=== PATIENT | female | born 1945 | race Caucasian/White ===

== ENCOUNTER → 2017-09-03 | Outpatient (CLI) | payer MEDICARE ==
[~2017-09-03] MED LIST: ALPR.5T PO; B 12 COMPLEX; CALC-656 PO; CLD600T; E400C; ESTR1TAB24 PO; GBPN300C; IBP200T PO; IBP800T PO; MEDR2.5T6 PO; TRM50T PO; VITA1CAP59 PO; [UNRECOGNIZED DRUG - OTHER]; [UNRECOGNIZED DRUG - OTHER]
--- NOTE | 2017-09-03 19:24 | Diagnostic Imaging Report ---
EXAMINATION: Bilateral diagnostic mammogram with tomography evaluation. The current study was also evaluated with a Computer Aided Detection (CAD) system. COMPARISON: 05/29/16. INDICATION: Palpable lesion in the medial inferior aspect of the left breast. FINDINGS: The breasts are composed of heterogeneously dense parenchyma which may decrease mammographic sensitivity. Benign-appearing calcifications are seen. Marker at site of palpable area in the inferior aspect of the left breast, medially, demonstrates no definite underlying lesion. IMPRESSION: Stable mammographic findings. Ultrasound evaluation pending. ACR BI-RADS Category 0: Incomplete. (Needs additional imaging evaluation). Result letter will be mailed to the patient. Note: At least 10% of breast cancer is not imaged by mammography. Dictated on workstation # [id number]
--- NOTE | 2017-09-03 19:34 | Diagnostic Imaging Report ---
EXAMINATION: Left breast ultrasound. INDICATION: Left breast lump. FINDINGS: There area of lump around the 9 o'clock zone is examined with no underlying abnormality seen. IMPRESSION: Negative study. Clinical followup of the palpable area is recommended. ACR BI-RADS Category 1: Negative. Result letter will be mailed to the patient. Note: At least 10% of breast cancer is not imaged by mammography. Dictated on workstation # [id number]
== END ==
LOC: RAD 12:47
PROVIDERS: ATTEND Obstetrics & Gynecology
DX: N63.20 Unspecified lump in the left breast, unspecified quadrant (principal)
CPT/HCPCS: 76642; 77066

== ENCOUNTER → 2018-11-03 | Outpatient (CLI) | payer MEDICARE ==
--- NOTE | 2018-11-03 13:58 | Diagnostic Imaging Report ---
PROCEDURE: MR imaging of the brain without contrast. TECHNIQUE: Multiplanar, multisequence MR imaging of the brain was performed without contrast. INDICATION: Dizziness and headaches. COMPARISON: No prior studies are available for comparison. FINDINGS: Ventricles and sulci are consistent with patient's age. Mild periventricular white matter changes are noted, likely on the basis of chronic microvascular ischemia. No sulcal effacement or midline shift is identified. No diffusion restriction is seen to suggest acute ischemia. The normal expected flow-voids within the carotid siphons are seen. Corpus callosum is unremarkable. Sella and parasellar structures are unremarkable. IMPRESSION: White matter disease, likely on the basis of chronic microvascular ischemia. No acute intracranial process is detected. Dictated by: Dictated on workstation # [id number]
--- NOTE | 2018-11-03 14:04 | Diagnostic Imaging Report ---
PROCEDURE: MR imaging cervical spine without contrast. TECHNIQUE: Multiplanar, multisequence MR imaging of the cervical spine was performed without contrast. INDICATION: Headaches and dizziness. COMPARISON: No prior studies are available for comparison. FINDINGS: Curvature and alignment of the cervical spine is normal. Postsurgical changes of ACDF with anterior plate and screws transfixing the C3-4 level is seen. There also appears to be osseous fusion between C5 and C6 vertebral bodies and perhaps partial osseous fusion between C4 and C5 vertebral bodies. Prior old hardware has been removed. Vertebral body marrow signal is unremarkable. The signal intensity throughout the cervical spinal cord appears normal. Craniocervical junction is unremarkable. C2-3: No central canal or neural foraminal narrowing is seen. C3-4: No central canal or neural foraminal narrowing is seen. C4-5: Unremarkable. C5-6: There are endplate osteophytes and uncovertebral joint degenerative changes. This does result in moderate narrowing of the right neural foramen. Central canal and left neural foramen are patent. C6-7: Unremarkable. C7-T1: Unremarkable. IMPRESSION: Postsurgical changes of the cervical spine. There does appear to be moderate right neural foraminal narrowing at C5-6 level. No central canal stenosis is identified. Dictated by: Dictated on workstation # [id number]
== END ==
LOC: RAD 12:05
PROVIDERS: ATTEND Nurse Practitioner Family
DX: M48.02 Spinal stenosis, cervical region (principal); I10 Essential (primary) hypertension; R90.82 White matter disease, unspecified; Z98.1 Arthrodesis status
CPT/HCPCS: 70551; 72141

== ENCOUNTER → 2019-11-09 | Outpatient (CLI) | payer MEDICARE ==
--- NOTE | 2019-11-09 10:19 | Diagnostic Imaging Report ---
PROCEDURE: US carotid duplex, bilateral. INDICATION: Dizziness. TECHNIQUE: Multiple real-time images with color Doppler imaging were performed. Doppler velocity and waveform data were obtained. The cervical carotid and vertebral arteries were evaluated. FINDINGS: Color images demonstrate mild scattered plaque formation. This is most pronounced at the level of the carotid bifurcations. Right Carotid System: Right Common Carotid Artery: Patent. There is no abnormally elevated velocity to suggest a hemodynamically significant stenosis. Right Internal Carotid Artery: Patent. There is no abnormally elevated velocity to suggest a hemodynamically significant stenosis. Right External Carotid Artery: Patent. Left Carotid System: Left Common Carotid Artery: Patent. There is no abnormally elevated velocity to suggest a hemodynamically significant stenosis. Left Internal Carotid Artery: Patent. There is no abnormally elevated velocity to suggest a hemodynamically significant stenosis. Left External Carotid Artery: Patent. Vertebral arteries: Patent and with antegrade direction of flow. Parameters based on the consensus panel Thomas-Scale and Doppler ultrasound criteria published August 2003, Radiology, Volume 229. DOPPLER (peak systolic velocity M/S Right Left CCA .82 .79 ICA Proximal .47 .77 ICA Mid .15 .17 ICA Distal .75 .94 RATIO 0.92 1.19 ECA .70 .80 VERT .38 .40 IMPRESSION: 1. Carotid Doppler imaging demonstrates no findings to suggest a hemodynamically significant stenosis of the internal carotid arteries at this time. Dictated by: Dictated on workstation # [id number]
== END ==
LOC: RAD 08:53
PROVIDERS: ATTEND Nurse Practitioner Family
DX: R42 Dizziness and giddiness (principal)
CPT/HCPCS: 93880

== ENCOUNTER → 2020-04-20 | Outpatient (CLI) | payer MEDICARE ==
--- NOTE | 2020-04-20 13:33 | Diagnostic Imaging Report ---
PROCEDURE: MR imaging cervical spine without contrast. TECHNIQUE: Multiplanar, multisequence MR imaging of the cervical spine was performed without contrast. INDICATION: Increasing cervical pain. FINDINGS: The previous MRI cervical spine exam of 11/03/2018 noted postsurgical changes consistent with an anterior cervical fusion of C3 and C4. There also appeared to be an osseous fusion between C5 and C6 and a partial osseous fusion between C4 and C5. The prior study also suggested moderate right neuroforaminal narrowing at the C5-C6 level. There was no high-grade central stenosis identified, however. On this study, the postsurgical and degenerative changes involving the cervical spine seen on the prior exam are again evident and not significantly changed. There is still no high-grade central stenosis identified. The mild narrowing of the neural foramen on the right at C5-C6 reported on the prior study is again evident and stable. There is no abnormal signal arising from the cord or other vertebral bodies to indicate an acute abnormality. The prior exam did note a broad-based disc bulge centrally at T2-T3. That finding is again evident and no different. The disc indents the ventral aspect of the thecal sac and narrows the AP diameter to 8.5 mm. There is no significant neuroforaminal narrowing at this level. The long-standing mild compression fracture of T1 noted previously is also no different. There is no sign of a paraspinal mass. The expected carotid and vertebral flow voids are evident bilaterally. IMPRESSION: 1. The postsurgical and degenerative changes involving the cervical spine seen on the prior study are again evident and do not appear to have changed significantly. There is no new area of central stenosis identified. 2. There is no abnormal signal arising from the cord or other vertebral bodies to indicate an acute abnormality. 3. The degenerative disc disease at the T2-T3 level and the long-standing mild compression deformity of T1 noted previously appear stable. Dictated by: Dictated on workstation # [id number]
--- NOTE | 2020-04-20 14:26 | Diagnostic Imaging Report ---
PROCEDURE: MRI lumbar spine. TECHNIQUE: Multiplanar, multisequence MRI of the lumbar spine was performed without contrast. INDICATION: Two previous lumbar surgeries with increasing lumbar spine pain. COMPARISON: Radiographs from 02/08/2016. FINDINGS: There are postsurgical changes from prior posterior fusion of L5-S1. Numbering is capped consistent with the 2016 radiographs. There is grade 1 anterolisthesis at L5-S1 measuring 5 mm. There is disc height loss at L4-L5 and L3-L4 with decreased T2 signal. Vertebral body heights are preserved. No acute fracture is seen. The soft tissues about the lumbar spine demonstrate no acute abnormality. T12-L1: Mild disc bulge with facet arthropathy and ligamentous infolding. This causes mild spinal canal narrowing. No foraminal stenosis. L1-L2: Mild disc bulge with facet arthropathy and ligamentous infolding. No spinal canal or foraminal stenosis. L2-L3: Diffuse disc bulge with facet arthropathy and ligamentous infolding. No spinal canal stenosis. Mild bilateral foraminal narrowing. L3-L4: Diffuse disc bulge with laminectomy changes. Facet arthropathy with marked narrowing of the lateral recesses. No spinal canal stenosis. Severe bilateral foraminal stenosis. L4-L5: Diffuse disc bulge with facet arthropathy. Laminectomy changes. No spinal canal stenosis. Narrowing of the lateral recesses bilaterally. Severe bilateral foraminal stenosis. L5-S1: Anterolisthesis. Disc spacer. No spinal canal stenosis. Moderate bilateral foraminal stenosis. IMPRESSION: 1. Postsurgical changes and degenerative changes in the lumbar spine as described above. 2. Mild spinal canal narrowing at T12-L1. Severe bilateral foraminal stenosis at L3-L4 and L4-L5. Dictated by: Dictated on workstation # [id number]
--- NOTE | 2020-04-20 16:23 | Diagnostic Imaging Report ---
INDICATION: Routine screening. COMPARISON is made with prior mammograms from 09/03/2017 and 05/29/2016. 2-D and 3-D bilateral screening mammography was performed with CAD. Both breasts remain heterogeneously dense, limiting the sensitivity of mammography. Scattered benign calcifications are identified in both breasts. No dominant mass or malignant appearing microcalcifications are seen. Axillae are unremarkable. IMPRESSION: BI-RADS Category 2. No mammographic features suspicious for malignancy are identified. ACR BI-RADS Category 2: Benign findings. Result letter will be mailed to the patient. Note: At least 10% of breast cancer is not imaged by mammography. Dictated by: Dictated on workstation # [id number]
== END ==
LOC: RAD 10:58
PROVIDERS: ATTEND Family Medicine
DX: Z12.31 Encounter for screening mammogram for malignant neoplasm of breast (principal); M48.061 Spinal stenosis, lumbar region without neurogenic claudication; M48.02 Spinal stenosis, cervical region; M47.816 Spondylosis without myelopathy or radiculopathy, lumbar region; M43.17 Spondylolisthesis, lumbosacral region; M51.26 Other intervertebral disc displacement, lumbar region; M51.34 Other intervertebral disc degeneration, thoracic region; Z98.890 Other specified postprocedural states
CPT/HCPCS: 72141; 72148; 77063; 77067

== ENCOUNTER → 2020-04-27 | Outpatient (CLI) | payer MEDICARE ==
--- NOTE | 2020-04-27 11:22 | Diagnostic Imaging Report ---
INDICATION: Low back pain. Time of exam: 10:45 AM Multiple views of the lumbar spine were obtained. Curvature and alignment is normal. There are postoperative changes of posterior instrumented fusion with vertical stabilization rods and pedicle screws transfixing the L5-S1 level. There is also an anterior screw at the S1 level. Hardware appears to be intact. Flexion and extension views were performed. With standing neutral view there may be very slight anterolisthesis of L5 on S1. This is unchanged during extension and flexion. No significant motion is seen. Vertebral body heights are maintained. No acute compression fracture is identified. There is generalized spondylosis with variable disc space narrowing and marginal spurring. IMPRESSION: Postoperative changes, as described. No significant motion during flexion or extension maneuvers is identified. Dictated by: Dictated on workstation # [id number]
== END ==
LOC: RAD 10:29
PROVIDERS: ATTEND Nurse Practitioner Family
DX: M47.816 Spondylosis without myelopathy or radiculopathy, lumbar region (principal); M48.061 Spinal stenosis, lumbar region without neurogenic claudication; Z98.890 Other specified postprocedural states
CPT/HCPCS: 72110

== ENCOUNTER → 2020-10-10 | Outpatient (CLI) | payer MEDICARE ==
[~2020-10-10] VITALS: Ht 157.5 cm; Wt 86.4 kg
[~2020-10-10] MED LIST changes: +BAMLANIVIMAB 700 MG in NS 200 ML IV ONE; +EPINEPHrine INJECTION 1 MG/ML AMP IM PRN; +diphenhydrAMINE 50 MG/ML INJ (BENADRYL) IV PRN
[2020-10-10 08:29] VITALS: BP 144/73
[2020-10-10 10:05] VITALS: BP 117/53
[2020-10-10 11:10] VITALS: BP 130/65
== END ==
LOC: INFUSION 08:16
PROVIDERS: ATTEND Nurse Practitioner Family
DX: U07.1 COVID-19 (principal); E78.2 Mixed hyperlipidemia; E03.9 Hypothyroidism, unspecified

== ENCOUNTER 2020-12-09 10:06 | Emergency (ER) | payer MEDICARE ==
[~2020-12-09] VITALS: Ht 157 cm; Wt 86.1 kg
[~2020-12-09 10:06] MED LIST changes: -BAMLANIVIMAB 700 MG in NS 200 ML IV ONE; -EPINEPHrine INJECTION 1 MG/ML AMP IM PRN; -diphenhydrAMINE 50 MG/ML INJ (BENADRYL) IV PRN
[2020-12-09] MEDS ORDERED: MECL-149 PO (10:26)
[2020-12-09] MEDS ORDERED: DIAZ5TAB PO (10:26)
[2020-12-09] MEDS ORDERED: TRIA1CAP4 PO (10:26)
[2020-12-09] MEDS ORDERED: ONDA4TAB11 PO ×2 (10:26→13:29)
[2020-12-09] MEDS ORDERED: VALS40TA9 PO (10:26)
[2020-12-09] MEDS ORDERED: ONDANSETRON 4 MG/2 ML (SDV) Z0FRAN IVP ONE (10:30)
[2020-12-09] MEDS ORDERED: LACTATED RINGERS 1,000 ML IV ONE (10:30)
[2020-12-09 10:47] LABS: BASOPHILS # (AUTO) 0.1 10^3/uL (0.0-0.1); BASOPHILS % (AUTO) 1 % (0-10); EOSINOPHILS # (AUTO) 0.1 10^3/uL (0.0-0.3); EOSINOPHILS % (AUTO) 1 % (0-10); HEMATOCRIT 37 % (35-52); HEMOGLOBIN 12.2 g/dL (11.5-16.0); LYMPHOCYTES # (AUTO) 2.3 10^3/uL (1.0-4.0); LYMPHOCYTES % (AUTO) 26 % (12-44); MEAN CORPUSCULAR HEMOGLOBIN 31 pg (25-34); MEAN CORPUSCULAR HGB CONC 33 g/dL (32-36); MEAN CORPUSCULAR VOLUME 94 fL (80-99); MEAN PLATELET VOLUME 12.1 fL (9.0-12.2); MONOCYTES # (AUTO) 0.7 10^3/uL (0.0-1.0); MONOCYTES % (AUTO) 8 % (0-12); NEUTROPHILS # (AUTO) 5.4 10^3/uL (1.8-7.8); NEUTROPHILS % (AUTO) 63 % (42-75); PLATELET COUNT 201 10^3/uL (130-400); WHITE BLOOD COUNT 8.6 10^3/uL (4.3-11.0)
[2020-12-09 11:06] LABS: POTASSIUM 3.6 MMOL/L (3.6-5.0)
[2020-12-09 11:07] LABS: CALCIUM 9.3 MG/DL (8.5-10.1)
[2020-12-09 11:12] LABS: CREATININE SERUM 1.23 MG/DL (0.60-1.30)
--- NOTE | 2020-12-09 11:36 | ED General ---
General Chief Complaint: Dizziness/Syncope Stated Complaint: DIZZY / VOMITING Nursing Triage Note: PT PRESENTS TO ED VIA POV FROM HOME WITH COMPLAINTS OF CHRONIC VERTIGO THAT HAS GOTTEN WORSE WITH NAUSEA AND VOMTING. Nursing Sepsis Screen: No Definite Risk Source of Information: Patient, Family (son) Exam Limitations: No Limitations History of Present Illness Date Seen by Provider: Dec 09, 2020 Time Seen by Provider: 10:06 Initial Comments Patient presents to the ER by private conveyance with her son and chief complaint of 1 week of a worsened episode of vertigo. She follows with Dr. Funes and has been prescribed meclizine, Zofran 4mg both which were taken about 2 hours prior to arrival. She also has been prescribed Valium which she used about 2:00 this morning. She says she is never had an episode this severe with nausea. Couple days ago she went to the physical therapist who treats her for her vertigo and he did some procedures 1 of which made her very nauseated and caused her to vomit on the table. She does not want to do any more procedures. She called [facility] and was instructed to come to the ER. Patient has had poor fluid intake related to nausea lately and had to use a bedpan yesterday because she could not get out of bed due to her debilitating vertigo. Allergies and Home Medications Allergies Uncoded Allergies: DEPOMEDROL (Allergy, Unknown, 08/27/13) Home Medications Alprazolam 0.5 Mg Tablet, 0.5-1 TAB PO BID PRN for ANXIETY, (Reported) TAKES 1/2 TO 1 (0.5MG) TABLET TWICE DAILY NEEDED FOR ANXIETY Calcium Carbonate/Vitamin D3 1 Each Tablet, 1 TAB PO DAILY, (Reported) Estradiol 1 Mg Tablet, 1 MG PO DAILY, (Reported) Ibuprofen 200 Mg Tab, 400 MG PO DAILY, (Reported) TAKES 2 (200MG) TABLETS EVERY MORNING Ibuprofen 800 Mg Tab, 800 MG PO TID PRN for PAIN, (Reported) Medroxyprogesterone Acetate 2.5 Mg Tablet, 2.5 MG PO DAILY, (Reported) Tramadol Hcl 50 Mg Tab, 50 MG PO Q4H PRN for PAIN, (Reported) Valsartan 40 Mg Tablet, 40 MG PO DAILY, (Reported) Vitamin B Complex 1 Cap Capsule, 1 CAP PO DAILY, (Reported) Patient Home Medication List Home Medication List Reviewed: Yes Review of Systems Review of Systems Constitutional: No chills, No diaphoresis; dizziness; No fever EENTM: No ear discharge, No ear pain Respiratory: No cough, No short of breath Cardiovascular: No chest pain, No edema, No palpitations Gastrointestinal: No abdominal pain, No constipation; nausea, vomiting Genitourinary: No discharge, No dysuria All Other Systems Reviewed Negative Unless Noted: Yes Past Skjtetb-Yhtubi-Zupcrg Hx Patient Social History Alcohol Use: Denies Use Smoking Status: Never a Smoker 2nd Hand Smoke Exposure: No Recent Infectious Disease Expo: No Recent Hopitalizations: Yes Seasonal Allergies Seasonal Allergies: No Past Medical History Surgeries: Yes (3 NECK SURGERY, TONSILS AND APENDIX OUT, 2-LUMBAR SX) Appendectomy, Section, Gallbladder, Tonsillectomy Respiratory: No Cardiac: No High Cholesterol, Hypertension Neurological: Yes Vertigo Reproductive Disorders: No Female Reproductive Disorders: Denies Sexually Transmitted Disease: No HIV/AIDS: No Gastrointestinal: No Musculoskeletal: Yes Arthritis Endocrine: No Cancer: No Psychosocial: No Integumentary: No Blood Disorders: No Adverse Reaction/Blood Tranf: No Family Medical History Family history: Arthritis 09 SISTER, Onset:40's - 50 09 SISTER, Onset:40's - 50 Family history: Cardiovascular disease 03 FATHER, Onset:50's - 60 03 MOTHER, Onset:60 years & older 09 BROTHER, Onset:60 years & older 09 SISTER, Onset:60 years & older Heart disease 09 SISTER, Onset:60 years & older Heart Disease, Hypertension Physical Exam Vital Signs Vital Signs - First Documented 12/09/20 10:15 Temp 36.2 Pulse 92 Resp 18 B/P (MAP) 150/86 (107) Pulse Ox 98 Capillary Refill : Less Than 3 Seconds Height, Weight, BMI Height: '" Weight: 168lbs. oz. 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 Norm as Tested Skin: Normal Color, Warm/Dry Progress/Results/Core Measures Suspected Sepsis Recent Fever Within 48 Hours: No Infection Criteria Present: None New/Unexplained Altered Menta: No Sepsis Screen: No Definite Risk SIRS Temperature: Pulse: 92 Respiratory Rate: 18 Laboratory Tests 12/09/20 10:40: White Blood Count 8.6 Blood Pressure 150 /86 Mean: 107 Laboratory Tests 12/09/20 10:40: Creatinine 1.23, Platelet Count 201 Results/Orders Lab Results Laboratory Tests Test 12/09/20 10:40 Range/Units White Blood Count 8.6 4.3-11.0 10^3/uL Red Blood Count 3.95 3.80-5.11 10^6/uL Hemoglobin 12.2 11.5-16.0 g/dL Hematocrit 37 35-52 % Mean Corpuscular Volume 94 80-99 fL Mean Corpuscular Hemoglobin 31 25-34 pg Mean Corpuscular Hemoglobin Concent 33 32-36 g/dL Red Cell Distribution Width 13.5 10.0-14.5 % Platelet Count 201 130-400 10^3/uL Mean Platelet Volume 12.1 9.0-12.2 fL Immature Granulocyte % (Auto) 0 % Neutrophils (%) (Auto) 63 42-75 % Lymphocytes (%) (Auto) 26 12-44 % Monocytes (%) (Auto) 8 0-12 % Eosinophils (%) (Auto) 1 0-10 % Basophils (%) (Auto) 1 0-10 % Neutrophils # (Auto) 5.4 1.8-7.8 10^3/uL Lymphocytes # (Auto) 2.3 1.0-4.0 10^3/uL Monocytes # (Auto) 0.7 0.0-1.0 10^3/uL Eosinophils # (Auto) 0.1 0.0-0.3 10^3/uL Basophils # (Auto) 0.1 0.0-0.1 10^3/uL Immature Granulocyte # (Auto) 0.0 0.0-0.1 10^3/uL Sodium Level 140 135-145 MMOL/L Potassium Level 3.6 3.6-5.0 MMOL/L Chloride Level 103 98-107 MMOL/L Carbon Dioxide Level 25 21-32 MMOL/L Anion Gap 12 5-14 MMOL/L Blood Urea Nitrogen 18 7-18 MG/DL Creatinine 1.23 0.60-1.30 MG/DL Estimat Glomerular Filtration Rate 43 BUN/Creatinine Ratio 15 Glucose Level 118 H 70-105 MG/DL Calcium Level 9.3 8.5-10.1 MG/DL My Orders Orders - VICTORIANO BARRIENTOS Ua Culture If Indicated (12/09/20 10:09) Cbc With Automated Diff (12/09/20 10:20) Basic Metabolic Panel (12/09/20 10:20) Ondansetron Injection (Zofran Injectio (12/09/20 10:30) Lactated Ringers (Lr 1000 Ml Iv Solution (12/09/20 10:30) Medications Given in ED Current Medications Medications Dose Ordered Sig/Jas Route Start Time Stop Time Status Last Admin Dose Admin Lactated Ringer's 1,000 ml @ 0 mls/hr Q0M ONCE IV 12/09/20 10:30 12/09/20 10:31 DC 12/09/20 10:35 0 MLS/HR Ondansetron HCl 8 mg ONCE ONCE IVP 12/09/20 10:30 12/09/20 10:31 DC 12/09/20 10:35 8 MG Vital Signs/I&O 12/09/20 10:15 Temp 36.2 Pulse 92 Resp 18 B/P (MAP) 150/86 (107) Pulse Ox 98 Capillary Refill : Less Than 3 Seconds Blood Pressure Mean: 107 Progress Note #1: Time: 11:35 Progress Note We gave her 8 mg of Zofran and she is working on a liter of fluids IV for her mild dehydration. She is appearing much more relaxed and comfortable. We have discussed doing some procedures to try and help her with her vertigo and she wo uld like a little more time Progress Note #2: Time: 13:22 Progress Note The patient's nausea has resolved so we encouraged her to take 1 or 2 tablets of Zofran in the future. We did the modified Semont maneuver and were able to it with 2 iterations get her vertigo to stop. She is now able to turn her head left and right and look up and down without stimulating vertigo. Departure Impression Primary Impression: Vertigo Disposition: 01 HOME, SELF-CARE Condition: Improved Departure-Patient Inst. Decision time for Depature: 13:25 Referrals: KIRSTEN FUNES MD (PCP/Family) Primary Care Physician Patient Instructions: Vertigo (a Type of Dizziness) (DC) Add. Discharge Instructions: Zofran/ondansetron 1 tablet under the tongue and if not seeing some improvement in 20 minutes you can take a second tablet. Continue to take the other medications as prescribed by your primary care provider. Do the exercises as outlined and follow-up with physical therapy for maneuvers if your vertigo gets worse. Consider following up with ENT, Dr. Phillips for other options of management of your symptoms. All discharge instructions reviewed with patient and/or family. Voiced understanding. Scripts Ondansetron (Ondansetron Odt) 4 Mg Tab.rapdis 4-8 MG PO Q6H PRN for NAUSEA/VOMITING, #20 TAB 0 Refills Prov: VICTORIANO BARRIENTOS 12/09/20 VICTORIANO BARRIENTOS Dec 09, 2020 11:36
[2020-12-09 13:40] VITALS: BP 147/65
== END 2020-12-09 13:41 | disposition home or self-care (01) ==
LOC: EDUNIT# 10:06 → ER 10:09
DX: R42 Dizziness and giddiness (principal); I10 Essential (primary) hypertension; Z88.8 Allergy status to other drugs, medicaments and biological substances; Z82.49 Family history of ischemic heart disease and other diseases of the circulatory system; Z82.61 Family history of arthritis
CPT/HCPCS: 36415; 80048; 85025

== ENCOUNTER → 2021-08-20 | Outpatient (CLI) | payer MEDICARE ==
[~2021-08-20] MED LIST changes: +DIAZ5TAB PO; +MECL-149 PO; +ONDA4TAB11 PO; +TRIA1CAP4 PO; +VALS40TA9 PO
--- NOTE | 2021-08-20 12:27 | Diagnostic Imaging Report ---
INDICATION: LEFT LEG SWELLING AND PAIN FOR A FEW WEEKS TECHNIQUE: Multiple real-time grayscale images were obtained over the left lower extremity in various projections, bilaterally. Additional duplex Doppler and color Doppler images were also obtained. CORRELATION STUDY: None FINDINGS: Color and grayscale sonographic images demonstrate no intraluminal defect within the visualized portion of the common femoral, superficial femoral and/or popliteal veins to suggest thrombus formation. These vessels demonstrate normal response to compression and augmentation. No soft tissue fluid collection. IMPRESSION: 1. Negative for deep venous thrombosis of the left leg. Dictated by: Dictated on workstation # [id number]
== END ==
LOC: RAD 11:25
PROVIDERS: ATTEND Family Medicine
DX: M79.89 Other specified soft tissue disorders (principal); M79.605 Pain in left leg

== ENCOUNTER → 2021-09-18 | Outpatient (CLI) | payer MEDICARE ==
--- NOTE | 2021-09-18 12:53 | Diagnostic Imaging Report ---
INDICATION: Routine screening. COMPARISON: 04/20/2020 and 09/03/2017. TECHNIQUE: 2D and 3D bilateral screening mammography was performed with CAD. FINDINGS: Both breasts are heterogeneously dense, limiting the sensitivity of mammography. There are scattered benign calcifications in both breasts. No mass or malignant-appearing microcalcifications are seen. The axillae are unremarkable. IMPRESSION: No mammographic features suspicious for malignancy are identified. ACR BI-RADS Category 2: Benign findings. Result letter will be mailed to the patient. Note: At least 10% of breast cancer is not imaged by mammography. Dictated by: Dictated on workstation # [id number]
== END ==
LOC: RAD 08:10
PROVIDERS: ATTEND Nurse Practitioner Family
DX: Z12.31 Encounter for screening mammogram for malignant neoplasm of breast (principal)
CPT/HCPCS: 77063; 77067

== ENCOUNTER 2022-04-24 13:31 | Observation (INO) | payer MEDICARE ==
[~2022-04-24] VITALS: Ht 157.5 cm; Wt 94.4 kg
[~2022-04-24 13:31] MED LIST changes: -TRIA1CAP4 PO; +TRIA1CAP84 PO
[2022-04-24] MEDS ORDERED: FUROSEMIDE 40 MG/4 ML INJ (LASIX) IVP ONE (14:30)
[2022-04-24] MEDS ORDERED: PATIENT MAY USE OWN MEDS, ALL PO SCH (14:30)
[2022-04-24] MEDS ORDERED: ONDANSETRON 4 MG/2 ML (SDV) Z0FRAN IVP PRN ×2 (14:30→16:15)
--- NOTE | 2022-04-24 15:26 | Consultation-Cardiology ---
HPI-Cardiology Cardiology Consultation: Date of Consultation 04/24/22 Time Seen by a Provider: 15:30 Date of Admission 04-24-22 Attending Physician Millicent Funes MD Admitting Physician Admitting Physician: Millicent Funes MD Attending Physician: Millicent Funes MD Consulting Physician Donnie Cramre MD HPI: Chief Complaint: Dyspnea, dizziness, swelling Ms. Suarez is a 76 yr old female admitted from Dr. Funes's office to room 415. She reports she has chronic bilat LE swelling with the left leg being worse than the right since her back surgery in Jun 2021. She reports Dr. Silva at [facility] (her back surgeon) did a venous doppler in September 2021 (she thinks) which was negative for a DVT. She reports the swelling is not any worse from her baseline. She states it does not improve with elevation or diuretics. She states she has had a feeling of not being able to take in a deep breath for the last 1-2 weeks. She reports this morning she had a sudden onset of worsening SOB, dizzines and near syncope. She reports it was consistent for several hours. She reports the symptoms have improved at this time. No c/o CP, palpitations. No sameer syncope. She reports she felt nauseated at the time. No emesis or diarrhea. Review of Systems-Cardiology Review of Systems Constitutional: As described under HPI; No chills, No fever Eyes: No vision change Ears/Nose/Throat: No epistaxis, No recent hearing loss Respiratory: As described under HPI Cardiovascular: As described under HPI Gastrointestinal: As described under HPI Genitourinary: No dysuria, No hematuria Musculoskeletal: no symptoms reported Skin: No rash on exposed areas, No ulcerations on exposed areas Psychiatric/Neurological: No anxiety, No depression, No seizure, No focal weakness, No syncope Hematologic: No bleeding abnormalities YBM-Pxacav-Lfaear Hx Patient Social History Smoking Status: Never a Smoker 2nd Hand Smoke Exposure: No Have you traveled recently?: No Alcohol Use?: No Substance type: Caffeine Pt feels they are or have been: No Past Medical History PMH As described under Assessment. Family Medical History Family Medical History: She reports her father passed from an NC at age 58. She reports her mother had CAD and passed from an NC at age 79. She reports she has a brother with CAD. She reports a sister with a pericardial effusion. Family History: Family history: Arthritis 09 SISTER, Onset:40's - 50 09 SISTER, Onset:40's - 50 Family history: Cardiovascular disease 03 FATHER, Onset:50's - 60 03 MOTHER, Onset:60 years & older 09 BROTHER, Onset:60 years & older 09 SISTER, Onset:60 years & older Heart disease 09 SISTER, Onset:60 years & older Allergies and Home Medications Allergies Uncoded Allergies: DEPOMEDROL (Allergy, Unknown, 08/27/13) Patient Home Medication List Alprazolam (Xanax) 0.5 Mg Tablet, 0.5-1 TAB PO BID PRN for ANXIETY, (Reported) Entered as Reported by: REMI BUCKNER on 08/26/13 1532 Calcium Carbonate/Vitamin D3 (Calcium 500 + D Tablet) 1 Each Tablet, 1 TAB PO DAILY, (Reported) Entered as Reported by: REMI BUCKNER on 08/26/13 1526 Diazepam (Valium) 5 Mg Tablet, 5 MG PO, (Reported) Entered as Reported by: JOE TAYLOR on 12/09/20 1026 Estradiol (Estradiol) 1 Mg Tablet, 1 MG PO DAILY, (Reported) Entered as Reported by: REMI BUCKNER on 08/26/13 1532 Ibuprofen (Motrin) 200 Mg Tab, 400 MG PO DAILY, (Reported) Entered as Reported by: KRISHNA NOLAN on 10/26/08 2315 Ibuprofen (Motrin) 800 Mg Tab, 800 MG PO TID PRN for PAIN, (Reported) Entered as Reported by: JAM VICENTE on 08/27/13 1817 Meclizine HCl (Meclizine HCl) 25 Mg Tablet, 25 MG PO, (Reported) Entered as Reported by: JOE TAYLOR on 12/09/20 1026 Medroxyprogesterone Acetate (Medroxyprogesterone Acetate) 2.5 Mg Tablet, 2.5 MG PO DAILY, (Reported) Entered as Reported by: REMI BUCKNER on 08/26/13 1532 Ondansetron (Ondansetron Odt) 4 Mg Tab.rapdis, 4 MG PO, (Reported) Entered as Reported by: JOE TAYLOR on 12/09/20 1026 Ondansetron (Ondansetron Odt) 4 Mg Tab.rapdis, 4-8 MG PO Q6H PRN for NAUSEA/VOMITING Prescribed by: VICTORIANO BARRIENTOS on 12/09/20 1329 Tramadol Hcl (Ultram) 50 Mg Tab, 50 MG PO Q4H PRN for PAIN, (Reported) Entered as Reported by: JAM VICENTE on 08/27/13 1817 Triamterene/Hydrochlorothiazid (Triamterene-Hctz 37.5-25 mg Cp) 1 Each Capsule, 1 EACH PO, (Reported) Entered as Reported by: JOE TAYLOR on 12/09/20 1026 Valsartan (Valsartan) 40 Mg Tablet, 40 MG PO DAILY, (Reported) Entered as Reported by: JOE TAYLOR on 12/09/20 1026 Vitamin B Complex (B Complex) 1 Cap Capsule, 1 CAP PO DAILY, (Reported) Entered as Reported by: REMI BUCKNER on 08/26/13 1527 Physical Exam-Cardiology Physical Exam Vital Signs/I&O 04/24/22 04/24/22 15:00 15:00 Pulse 64 64 Capillary Refill : Constitutional: AAO x 3, well-developed, well-nourished HEENT: hearing is well preserved, oral hygience is good Neck: No carotid bruit; carotid pulses are 2 + bilaterally Respiratory: No accessory muscle use, No respiratory distress; chest expansion is symmetric, chest is bilaterally symmetric, lungs clear to auscultation Cardiovascular: regular rate-rhythm; No JVD; S1 and S2 Gastrointestinal: No tender; soft, round, audible bowel sounds Extremities: other (mild to mod LE swelling; L>R) Neurologic/Psychiatric: grossly intact (moves all extremities) Skin: No rash on exposed areas, No ulcerations on exposed areas Data Review Labs Laboratory Tests 04/24/22 15:21: White Blood Count 9.0, Red Blood Count 3.45L, Hemoglobin 11.1L, Hematocrit 35, Mean Corpuscular Volume 101H, Mean Corpuscular Hemoglobin 32, Mean Corpuscular Hemoglobin Concent 32, Red Cell Distribution Width 12.9, Platelet Count 189, Mean Platelet Volume 12.5H, Immature Granulocyte % (Auto) 0, Neutrophils (%) (Auto) 66, Lymphocytes (%) (Auto) 24, Monocytes (%) (Auto) 8, Eosinophils (%) (Auto) 1, Basophils (%) (Auto) 1, Neutrophils # (Auto) 5.9, Lymphocytes # (Auto) 2.2, Monocytes # (Auto) 0.7, Eosinophils # (Auto) 0.1, Basophils # (Auto) 0.1, Immature Granulocyte # (Auto) 0.0, Prothrombin Time 13.2, INR Comment 1.0, Activated Partial Thromboplast Time 27, Sodium Level 140, Potassium Level 3.7, Chloride Level 103, Carbon Dioxide Level 24, Anion Gap 13, Blood Urea Nitrogen 18, Creatinine 1.26, Estimat Glomerular Filtration Rate 45, BUN/Creatinine Ratio 14, Glucose Level 92, Calcium Level 9.6, Corrected Calcium 9.4, Total Bilirubin 0.9, Aspartate Amino Transf (AST/SGOT) 26, Alanine Aminotransferase (ALT/SGPT) 11, Alkaline Phosphatase 71, Myoglobin 126.4H, Troponin I < 0.028, Total Protein 7.3, Albumin 4.2 A/P-Cardiology Assessment/Admission Diagnosis Sudden worsening of dyspnea with assoc near syncope - undetermined etiology HTN HLD Chronic bilat LE swelling - L>R following back surgery in Jun [address] Silva at [facility] - reports negative venous duplex in Sep 2021 Reports CKD Peripheral neuropathy H/O multiple back surgeries - most recent being lumbar in Jun 2021 with wilton placement GERD H/O cholecystectomy Family h/o CAD - Mother, father, brother and sister (see family h/o) Discussion and Recomendations Sudden onset of worsening SOB with assoc near syncope/nausea - troponin is negative - undetermined etiology - Echocardiogram today - Based on symptoms, h/o and risk factors advise further coronary w/u - serial troponin and ECG - if no evidence of ACS advise MPI Advise CTA of the chest to r/o PE Continue home medications for HTN Advise venous duplex d/t swelling, with LLE worse than the RLE Start ASA daily Awaiting lab results Further recs will be based on her hospital course We would like to thank Dr. Funes for this consult EFRA JOHNSON Apr 24, 2022 15:26
[2022-04-24 15:31] LABS: BASOPHILS # (AUTO) 0.1 10^3/uL (0.0-0.1); BASOPHILS % (AUTO) 1 % (0-10); EOSINOPHILS # (AUTO) 0.1 10^3/uL (0.0-0.3); EOSINOPHILS % (AUTO) 1 % (0-10); HEMATOCRIT 35 % (35-52); HEMOGLOBIN 11.1 g/dL (11.5-16.0); LYMPHOCYTES # (AUTO) 2.2 10^3/uL (1.0-4.0); LYMPHOCYTES % (AUTO) 24 % (12-44); MEAN CORPUSCULAR HEMOGLOBIN 32 pg (25-34); MEAN CORPUSCULAR HGB CONC 32 g/dL (32-36); MEAN CORPUSCULAR VOLUME 101 fL (80-99); MEAN PLATELET VOLUME 12.5 fL (9.0-12.2); MONOCYTES # (AUTO) 0.7 10^3/uL (0.0-1.0); MONOCYTES % (AUTO) 8 % (0-12); NEUTROPHILS # (AUTO) 5.9 10^3/uL (1.8-7.8); NEUTROPHILS % (AUTO) 66 % (42-75); PLATELET COUNT 189 10^3/uL (130-400)
[2022-04-24 15:42] LABS: ALBUMIN 4.2 GM/DL (3.2-4.5); CHLORIDE 103 MMOL/L (98-107); POTASSIUM 3.7 MMOL/L (3.6-5.0); SODIUM 140 MMOL/L (135-145)
[2022-04-24 15:44] LABS: CALCIUM 9.6 MG/DL (8.5-10.1)
[2022-04-24 15:45] LABS: GLUCOSE 92 MG/DL (70-105); PROTHROMBIN TIME PATIENT 13.2 SEC (12.2-14.7); TOTAL PROTEIN 7.3 GM/DL (6.4-8.2)
[2022-04-24 15:46] LABS: CARBON DIOXIDE 24 MMOL/L (21-32)
[2022-04-24 15:47] LABS: BILIRUBIN,TOTAL 0.9 MG/DL (0.1-1.0)
[2022-04-24 15:48] LABS: ALKALINE PHOSPHATASE 71 U/L (40-136); CREATININE SERUM 1.26 MG/DL (0.60-1.30); GFR ESTIMATED 45
[2022-04-24 15:49] LABS: BUN/CREATININE RATIO 14
[2022-04-24 15:51] LABS: ALANINE AMINOTRANSFERASE 11 U/L (0-55)
[2022-04-24] MEDS ORDERED: ESCI-2 PO (16:24)
[2022-04-24] MEDS ORDERED: OMEP40CA6 PO (16:24)
[2022-04-24] MEDS ORDERED: PRAV10TA PO (16:24)
[2022-04-24] MEDS ORDERED: GABA-486 PO (16:24)
[2022-04-24] MEDS ORDERED: METO-333 PO (16:24)
[2022-04-24] MEDS ORDERED: FURO20TA4 PO (16:24)
[2022-04-24] MEDS ORDERED: TRIA1TAB3 PO (16:24)
[2022-04-24] MEDS ORDERED: IOHEXOL 350 MG/ML 100 ML (OMNIPAQUE 350) VIAL IV ONE (16:30)
[2022-04-24] MEDS ORDERED: NS 100 ML (IVPB) BAG IV ONE (16:30)
[2022-04-24] MEDS ORDERED: HOLD METFORMIN - RECEIVED CONTRAST 20 ML VIAL IV SCH (16:30)
--- NOTE | 2022-04-24 17:07 | Diagnostic Imaging Report ---
INDICATION: Shortness of breath. EXAMINATION: PA and lateral chest. FINDINGS: Heart size and pulmonary vascularity are normal. Lungs are clear. There are no effusions or pneumothoraces. IMPRESSION: No acute abnormalities in the chest. Dictated by: Dictated on workstation # [id number]
--- NOTE | 2022-04-24 17:07 | Diagnostic Imaging Report ---
PROCEDURE: US left lower extremity venous. TECHNIQUE: Multiple real-time grayscale images were obtained over the left lower extremity in various projections. Additional duplex Doppler and color Doppler images were also obtained. INDICATION: Left leg swelling. FINDINGS: The veins of the left leg have good color filling and compressibility. There is phasic flow and a normal response to augmentation. IMPRESSION: Negative venous Doppler left leg. Dictated by: Dictated on workstation # [id number]
--- NOTE | 2022-04-24 17:19 | Diagnostic Imaging Report ---
PROCEDURE: CT angiography of the chest with contrast. TECHNIQUE: Multiple contiguous axial images were obtained through the chest after uneventful bolus administration of intravenous contrast. 3D reconstructed CTA MIP acquisitions were also performed. Auto Exposure Controls were utilized during the CT exam to meet ALARA standards for radiation dose reduction. INDICATION: Edema. Chest pain. Concern for PE. COMPARISON: Chest radiograph performed earlier the same date. FINDINGS: This helical CT pulmonary angiogram is diagnostic to the subsegmental level branches of the pulmonary artery and demonstrates no pulmonary emboli. The heart is prominent. There is no pericardial effusion. There is no axillary, mediastinal, or hilar adenopathy. No focal consolidation or mass. Small amount of dependent opacities are seen in the lung bases. No central endobronchial obstructing lesion. No pleural effusion or pneumothorax is seen. Osseous structures appear normal. Limited views of the upper abdomen are unremarkable. IMPRESSION: 1. No acute pulmonary embolus. 2. Cardiomegaly. No evidence of acute pulmonary edema. Dictated by: Dictated on workstation # [id number]
--- NOTE | 2022-04-24 17:54 | History & Physical ---
History of Present Illness History of Present Illness Reason for visit/HPI Judi is a 76 y/o female who presented to my office today with complaint of "not feeling well, having trouble breathing, nausea and edema". The patient reports that she has had edema intermittently for the past few weeks, she thinks maybe for a month. She has noticed swelling of her face over the past few weeks. She admits to eating more salty foods over the past few weeks. Date of Admission Apr 24, 2022 at 13:32 Date Seen by a Provider: Apr 24, 2022 Time Seen by a Provider: 13:00 Attending Physician Kirsten Funes MD Admitting Physician Admitting Physician: Kirsten Funes MD Attending Physician: Kirsten Funes MD Consult Dr. Cramer Allergies and Home Medications Allergies Uncoded Allergies: DEPOMEDROL (Allergy, Unknown, 08/27/13) Patient Home Medication List Home Medication List Reviewed: Yes Escitalopram Oxalate (Escitalopram Oxalate) 10 Mg Tablet, 10 MG PO HS, (Reported) Entered as Reported by: KENZIE ROMAN on 04/24/221623 Last Action: Converted Furosemide (Furosemide) 20 Mg Tablet, 20 MG PO DAILY, (Reported) Entered as Reported by: KENZIE ROMAN on 04/24/221623 Last Action: Held Gabapentin (Gabapentin) 100 Mg Capsule, 200 MG PO TID, (Reported) Entered as Reported by: KENZIE ROMAN on 04/24/221623 Last Action: Continued Metoprolol Tartrate (Metoprolol Tartrate) 25 Mg Tablet, 12.5 MG PO BID, (Reported) Entered as Reported by: KENZIE ROMAN on 04/24/221623 Last Action: Continued Omeprazole (Omeprazole) 40 Mg Capsule.dr, 40 MG PO DAILY, (Reported) Entered as Reported by: KENZIE ROMAN on 04/24/221623 Last Action: Converted Pravastatin Sodium (Pravastatin Sodium) 10 Mg Tablet, 10 MG PO HS, (Reported) Entered as Reported by: KENZIE ROMAN on 04/24/221623 Last Action: Held Triamterene/Hydrochlorothiazid (Triamterene-Hctz 37.5-25 mg Tb) 37.5 Mg-25 Mg Tablet, 1 EA PO DAILY, (Reported) Entered as Reported by: KENZIE ROMAN on 7/13/22 1624 Last Action: Held Discontinued Medications Alprazolam (Xanax) 0.5 Mg Tablet, 0.5-1 TAB PO BID PRN for ANXIETY, (Reported) Discontinued Reason: No Longer Taking Entered as Reported by: REMI BUCKNER on 08/26/13 1532 Last Action: Discontinued Calcium Carbonate/Vitamin D3 (Calcium 500 + D Tablet) 1 Each Tablet, 1 TAB PO DAILY, (Reported) Discontinued Reason: No Longer Taking Entered as Reported by: REMI BUCKNER on 08/26/13 1526 Last Action: Discontinued Diazepam (Valium) 5 Mg Tablet, 5 MG PO, (Reported) Discontinued Reason: No Longer Taking Entered as Reported by: JOE TAYLOR on 12/09/20 1026 Last Action: Discontinued Estradiol (Estradiol) 1 Mg Tablet, 1 MG PO DAILY, (Reported) Discontinued Reason: No Longer Taking Entered as Reported by: REMI BUCKNER on 08/26/13 1532 Last Action: Discontinued Ibuprofen (Motrin) 200 Mg Tab, 400 MG PO DAILY, (Reported) Discontinued Reason: No Longer Taking Entered as Reported by: KRISHNA NOLAN on 10/26/08 2315 Last Action: Discontinued Ibuprofen (Motrin) 800 Mg Tab, 800 MG PO TID PRN for PAIN, (Reported) Discontinued Reason: No Longer Taking Entered as Reported by: JAM VICENTE on 08/27/13 1817 Last Action: Discontinued Meclizine HCl (Meclizine HCl) 25 Mg Tablet, 25 MG PO, (Reported) Discontinued Reason: No Longer Taking Entered as Reported by: JOE TAYLOR on 12/09/20 1026 Last Action: Discontinued Medroxyprogesterone Acetate (Medroxyprogesterone Acetate) 2.5 Mg Tablet, 2.5 MG PO DAILY, (Reported) Discontinued Reason: No Longer Taking Entered as Reported by: REMI BUCKNER on 08/26/13 1532 Last Action: Discontinued Ondansetron (Ondansetron Odt) 4 Mg Tab.rapdis, 4 MG PO, (Reported) Discontinued Reason: No Longer Taking Entered as Reported by: JOE TAYLOR on 12/09/20 1026 Last Action: Discontinued Ondansetron (Ondansetron Odt) 4 Mg Tab.rapdis, 4-8 MG PO Q6H PRN for NAUSEA/VOMITING Discontinued Reason: No Longer Taking Prescribed by: VICTORIANO BARRIENTOS on 12/09/20 1329 Last Action: Discontinued Tramadol Hcl (Ultram) 50 Mg Tab, 50 MG PO Q4H PRN for PAIN, (Reported) Discontinued Reason: No Longer Taking Entered as Reported by: JAM VICENTE on 08/27/13 1817 Last Action: Discontinued Triamterene/Hydrochlorothiazid (Triamterene-Hctz 37.5-25 mg Cp) 1 Each Capsule, 1 EACH PO, (Reported) Discontinued Reason: No Longer Taking Entered as Reported by: JOE TAYLOR on 12/09/20 1026 Last Action: Discontinued Valsartan (Valsartan) 40 Mg Tablet, 40 MG PO DAILY, (Reported) Discontinued Reason: No Longer Taking Entered as Reported by: JOE TAYLOR on 12/09/20 1026 Last Action: Discontinued Vitamin B Complex (B Complex) 1 Cap Capsule, 1 CAP PO DAILY, (Reported) Discontinued Reason: No Longer Taking Entered as Reported by: REMI BUCKNER on 08/26/13 1527 Last Action: Discontinued Past Oqbibhd-Mmcvfb-Cuzdpd Hx Patient Social History Marrital Status: Number of Children: 2 Number of living children: 2 Living Status: lives in her home in [facility]. 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 Tobacco Use?: No Smoking Status: Never a Smoker Use of E-Cig and/or Vaping dev: No Substance use?: Yes Substance type: Caffeine Substance frequency: Daily Alcohol Use?: No Pt feels they are or have been: No Immunizations Up To Date Tetanus Booster (TDap): Unknown Seasonal Allergies Seasonal Allergies: No Current Status status: No status: No Advance Directives: No Communicates: Verbally Primary Language: Bulgarian Preferred Spoken Language: Bulgarian Is interpretation needed?: No Sensory deficits: Vision impairment Implanted or Applied Medical D: Orthopedic hardware Past Medical History Surgeries: Appendectomy, Section, Gallbladder, Neurological (back surgery - lumbar spine), Tonsillectomy Currently Using CPAP: No Currently Using BIPAP: No High Cholesterol, Hypertension Vertigo Sexually Transmitted Disease: No HIV/AIDS: No Arthritis, Chronic Back Pain Hearing Impairment: Denies Anxiety, Depression Blood Disorders: No Adverse Reaction/Blood Tranf: No Family Medical History Reviewed and Corrections made Family history: Arthritis 09 SISTER, Onset:40's - 50 09 SISTER, Onset:40's - 50 Family history: Cardiovascular disease 03 FATHER, Onset:50's - 60 03 MOTHER, Onset:60 years & older 09 BROTHER, Onset:60 years & older 09 SISTER, Onset:60 years & older Heart disease 09 SISTER, Onset:60 years & older Heart Disease, Hypertension, Renal Disease (sister) Review of Systems Constitutional: No chills, No diaphoresis, No fever; malaise, weakness EENTM: No hoarseness, No throat pain Respiratory: No cough; dyspnea on exertion, short of breath Cardiovascular: chest pain ("stuffiness in her chest"), edema; No palpitations Gastrointestinal: abdominal pain; No constipation, No diarrhea; nausea; No vomiting Genitourinary: no symptoms reported Musculoskeletal: back pain (chronic intermittent pain), muscle weakness Skin: no symptoms reported Psychiatric/Neurological: Anxiety, Depressed; Denies Headache; Weakness, Other All Other Systems Reviewed Negative Unless Noted: Yes Physical Exam Vital Signs Vital Signs - First Documented Capillary Refill : Height, Weight, BMI Height: '" Weight: 168lbs. oz. [id number]; 38.05 BMI Method: General Appearance: WD/WN, Mild Distress (due to dyspnea) Eyes: Bilateral Eye Normal Inspection, Bilateral Eye PERRL, Bilateral Eye EOMI HEENT: PERRL/EOMI, Normal ENT Inspection, Pharynx Normal Neck: Full Range of Motion, Non Tender, Supple Respiratory: Chest Non Tender, Lungs Clear, Normal Breath Sounds, No Accessory Muscle Use Cardiovascular: Regular Rate, Rhythm, Other (edema bilateral lower legs - 4+ at ankles and mid lower legs 2-3+ at knees) Gastrointestinal: Normal Bowel Sounds, No Organomegaly, Soft, Tenderness (epigastric) Rectal: Deferred Extremity: Normal Capillary Refill, Normal Range of Motion, Non Tender, Pedal Edema Neurologic/Psychiatric: Alert, Oriented x3, No Motor/Sensory Deficits, Normal Mood/Affect Skin: Normal Color, Warm/Dry Lymphatic: No Adenopathy Assessment/Plan Assessment and Plan Chest pain Edema Dyspnea on exertion Nausea Abdominal pain Hypertension Chronic anxiety and depression Peripheral neuropathy Chronic back pain Hx of surgical intervention on lumbar spine Elevated myoglobin Chest pain with Edema and Dyspnea on exertion - consult placed to Dr. Cramer - EKG and ECHO ordered - Troponin negative - myoglobin mildly elevated - anticipate stress testing soon Nausea with Abdominal pain - add PPI - monitor symptoms Hypertension - resume beta tani - monitor blood pressure Chronic anxiety and depression - resume escitalopram Peripheral neuropathy with Chronic back pain from Hx of surgical intervention on lumbar spine - resume gabapentin dvt prophylaxis with scd's and lovenox gi prophylaxis with ppi Admission Diagnosis Chest pain Edema Dyspnea on exertion Nausea Abdominal pain Hypertension Chronic anxiety and depression Peripheral neuropathy Chronic back pain Hx of surgical intervention on lumbar spine Elevated myoglobin Admission Status: Observation KIRSTEN FUNES MD Apr 24, 2022 17:54
[2022-04-24 18:02] VITALS: BP 152/73
[2022-04-24] MEDS ORDERED: PANTOPRAZOLE 40 MG (PROTONIX) TAB PO NR (18:30)
[2022-04-24] MEDS ORDERED: ENOXAPARIN 40 MG/0.4 ML (LOVENOX) SYR SC SCH (18:30)
--- NOTE | 2022-04-24 19:19 | Consultation-Cardiology ---
HPI-Cardiology Cardiology Consultation: Date of Consultation 04/24/22 Time Seen by a Provider: 18:20 Date of Admission Attending Physician Millicent Funes MD Admitting Physician Admitting Physician: Millicent Funes MD Attending Physician: Millicent Funes MD Consulting Physician JOYCELYN ARGUETA MD, MA, FACP, FACC, FSCAI, CCDS HPI: Chief Complaint: Dyspnea, dizziness, swelling Ms. Suarez is a 76 yr old female admitted from Dr. Funes's office to room 415. She reports she has chronic bilat LE swelling with the left leg being worse than the right since her back surgery in Jun 2021. She reports Dr. Silva at [facility] (her back surgeon) did a venous doppler in September 2021 (she thinks) which was negative for a DVT. She reports the swelling is not any worse from her baseline. She states it does not improve with elevation or diuretics. She states she has had a feeling of not being able to take in a deep breath for the last 1-2 weeks. She reports this morning she had a sudden onset of worsening SOB, dizzines and near syncope. She reports it was consistent for several hours. She reports the symptoms have improved at this time. No c/o CP, palpitations. No sameer syncope. She reports she felt nauseated at the time. No emesis or diarrhea. Review of Systems-Cardiology Review of Systems Constitutional: As described under HPI; No chills, No fever Eyes: No vision change Ears/Nose/Throat: No epistaxis, No recent hearing loss Respiratory: As described under HPI Cardiovascular: As described under HPI Gastrointestinal: As described under HPI Genitourinary: No dysuria, No hematuria Musculoskeletal: no symptoms reported Skin: No rash on exposed areas, No ulcerations on exposed areas Psychiatric/Neurological: No anxiety, No depression, No seizure, No focal weakness, No syncope Hematologic: No bleeding abnormalities All Other Systems Reviewed Negative Unless Noted: Yes WUR-Luacin-Lhpxkn Hx Patient Social History Marrital Status: Number of Children: 2 Number of living children: 2 Living Status: lives in her home in [facility]. 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 Family Medical History Family Medical History: She reports her father passed from an [place] at age 58. She reports her mother had CAD and passed from an [place] at age 79. She reports she has a brother with CAD. She reports a sister with a pericardial effusion. Family History: Family history: Arthritis 09 SISTER, Onset:40's - 50 09 SISTER, Onset:40's - 50 Family history: Cardiovascular disease 03 FATHER, Onset:50's - 60 03 MOTHER, Onset:60 years & older 09 BROTHER, Onset:60 years & older 09 SISTER, Onset:60 years & older Heart disease 09 SISTER, Onset:60 years & older Allergies and Home Medications Allergies Uncoded Allergies: DEPOMEDROL (Allergy, Unknown, 08/27/13) Patient Home Medication List Home Medication List Reviewed: Yes Escitalopram Oxalate (Escitalopram Oxalate) 10 Mg Tablet, 10 MG PO HS, (Reported) Entered as Reported by: KENZIE ROMAN on 04/24/221623 Last Action: Converted Furosemide (Furosemide) 20 Mg Tablet, 20 MG PO DAILY, (Reported) Entered as Reported by: KENZIE ROMAN on 04/24/221623 Last Action: Held Gabapentin (Gabapentin) 100 Mg Capsule, 200 MG PO TID, (Reported) Entered as Reported by: KENZIE ROMAN on 04/24/221623 Last Action: Continued Metoprolol Tartrate (Metoprolol Tartrate) 25 Mg Tablet, 12.5 MG PO BID, (Reported) Entered as Reported by: KENZIE ROMAN on 04/24/221623 Last Action: Continued Omeprazole (Omeprazole) 40 Mg Capsule.dr, 40 MG PO DAILY, (Reported) Entered as Reported by: KENZIE ROMAN on 04/24/221623 Last Action: Converted Pravastatin Sodium (Pravastatin Sodium) 10 Mg Tablet, 10 MG PO HS, (Reported) Entered as Reported by: KENZIE ROMAN on 04/24/221623 Last Action: Held Triamterene/Hydrochlorothiazid (Triamterene-Hctz 37.5-25 mg Tb) 37.5 Mg-25 Mg Tablet, 1 EA PO DAILY, (Reported) Entered as Reported by: KENZIE ROMAN on 04/24/221623 Last Action: Held Discontinued Medications Alprazolam (Xanax) 0.5 Mg Tablet, 0.5-1 TAB PO BID PRN for ANXIETY, (Reported) Discontinued Reason: No Longer Taking Entered as Reported by: REMI BUCKNER on 08/26/13 153 Last Action: Discontinued Calcium Carbonate/Vitamin D3 (Calcium 500 + D Tablet) 1 Each Tablet, 1 TAB PO DAILY, (Reported) Discontinued Reason: No Longer Taking Entered as Reported by: REMI BUCKNER on 08/26/13 152 Last Action: Discontinued Diazepam (Valium) 5 Mg Tablet, 5 MG PO, (Reported) Discontinued Reason: No Longer Taking Entered as Reported by: JOE TAYLOR on 12/09/20 1026 Last Action: Discontinued Estradiol (Estradiol) 1 Mg Tablet, 1 MG PO DAILY, (Reported) Discontinued Reason: No Longer Taking Entered as Reported by: REMI BUCKNER on 08/26/13 153 Last Action: Discontinued Ibuprofen (Motrin) 200 Mg Tab, 400 MG PO DAILY, (Reported) Discontinued Reason: No Longer Taking Entered as Reported by: KRISHNA NOLAN on 10/26/08 2315 Last Action: Discontinued Ibuprofen (Motrin) 800 Mg Tab, 800 MG PO TID PRN for PAIN, (Reported) Discontinued Reason: No Longer Taking Entered as Reported by: JAM VICENTE on 08/27/131816 Last Action: Discontinued Meclizine HCl (Meclizine HCl) 25 Mg Tablet, 25 MG PO, (Reported) Discontinued Reason: No Longer Taking Entered as Reported by: JOE TAYLOR on 12/09/20 1026 Last Action: Discontinued Medroxyprogesterone Acetate (Medroxyprogesterone Acetate) 2.5 Mg Tablet, 2.5 MG PO DAILY, (Reported) Discontinued Reason: No Longer Taking Entered as Reported by: REMI BUCKNER on 08/26/13 1532 Last Action: Discontinued Ondansetron (Ondansetron Odt) 4 Mg Tab.rapdis, 4 MG PO, (Reported) Discontinued Reason: No Longer Taking Entered as Reported by: JOE TAYLOR on 12/09/20 1026 Last Action: Discontinued Ondansetron (Ondansetron Odt) 4 Mg Tab.rapdis, 4-8 MG PO Q6H PRN for NAUSEA/VOMITING Discontinued Reason: No Longer Taking Prescribed by: VICTORIANO BARRIENTOS on 12/09/20 1329 Last Action: Discontinued Tramadol Hcl (Ultram) 50 Mg Tab, 50 MG PO Q4H PRN for PAIN, (Reported) Discontinued Reason: No Longer Taking Entered as Reported by: JAM VICENTE on 08/27/13 1817 Last Action: Discontinued Triamterene/Hydrochlorothiazid (Triamterene-Hctz 37.5-25 mg Cp) 1 Each Capsule, 1 EACH PO, (Reported) Discontinued Reason: No Longer Taking Entered as Reported by: JOE TAYLOR on 12/09/20 1026 Last Action: Discontinued Valsartan (Valsartan) 40 Mg Tablet, 40 MG PO DAILY, (Reported) Discontinued Reason: No Longer Taking Entered as Reported by: JOE TAYLOR on 12/09/20 1026 Last Action: Discontinued Vitamin B Complex (B Complex) 1 Cap Capsule, 1 CAP PO DAILY, (Reported) Discontinued Reason: No Longer Taking Entered as Reported by: REMI BUCKNER on 08/26/13 1527 Last Action: Discontinued Physical Exam-Cardiology Physical Exam Vital Signs/I&O 04/24/22 04/24/22 04/24/22 15:00 15:00 18:02 Temp 36.4 Pulse 64 64 56 Resp 20 B/P (MAP) 152/73 (99) Pulse Ox 100 O2 Delivery Room Air Capillary Refill : Constitutional: AAO x 3, well-developed, well-nourished HEENT: hearing is well preserved, oral hygience is good Neck: No carotid bruit; carotid pulses are 2 + bilaterally Respiratory: No accessory muscle use, No respiratory distress; chest expansion is symmetric, chest is bilaterally symmetric, lungs clear to auscultation Cardiovascular: regular rate-rhythm; No JVD; S1 and S2 Gastrointestinal: No tender; soft, round, audible bowel sounds Extremities: other (mod LE swelling; L>R) Neurologic/Psychiatric: grossly intact (moves all extremities) Skin: No rash on exposed areas, No ulcerations on exposed areas Data Review Labs Laboratory Tests 04/24/22 15:21: White Blood Count 9.0, Red Blood Count 3.45L, Hemoglobin 11.1L, Hematocrit 35, Mean Corpuscular Volume 101H, Mean Corpuscular Hemoglobin 32, Mean Corpuscular Hemoglobin Concent 32, Red Cell Distribution Width 12.9, Platelet Count 189, Mean Platelet Volume 12.5H, Immature Granulocyte % (Auto) 0, Neutrophils (%) (Au to) 66, Lymphocytes (%) (Auto) 24, Monocytes (%) (Auto) 8, Eosinophils (%) (Auto) 1, Basophils (%) (Auto) 1, Neutrophils # (Auto) 5.9, Lymphocytes # (Auto) 2.2, Monocytes # (Auto) 0.7, Eosinophils # (Auto) 0.1, Basophils # (Auto) 0.1, Immature Granulocyte # (Auto) 0.0, Prothrombin Time 13.2, INR Comment 1.0, Activated Partial Thromboplast Time 27, Sodium Level 140, Potassium Level 3.7, Chloride Level 103, Carbon Dioxide Level 24, Anion Gap 13, Blood Urea Nitrogen 18, Creatinine 1.26, Estimat Glomerular Filtration Rate 45, BUN/Creatinine Ratio 14, Glucose Level 92, Calcium Level 9.6, Corrected Calcium 9.4, Total Bilirubin 0.9, Aspartate Amino Transf (AST/SGOT) 26, Alanine Aminotransferase (ALT/SGPT) 11, Alkaline Phosphatase 71, Myoglobin 126.4H, Troponin I < 0.028, Total Protein 7.3, Albumin 4.2 A/P-Cardiology Assessment/Admission Diagnosis Sudden worsening of dyspnea with assoc near-syncope - undetermined etiology - Pulm CT angio on 04/24/22: 1. No acute pulmonary embolus. 2. Cardiomegaly. No evidence of acute pulmonary edema. - Echo on 04/24/22: The cavity size is normal. Wall thickness is normal. Systolic function is normal. The estimated ejection fraction is 55-60%. There were no regional wall motion abnormalities identified. Pulmonary arteries: Systolic pressure is in the range of 20 mm Hg to 25 mm Hg HTN HLD Chronic bilat LE swelling - L>R following back surgery in Jun [address] Silva at [facility] - reports negative venous duplex in Sep 2021 - Negative venous Doppler left leg on 04/24/22 CKD-3 Peripheral neuropathy H/O multiple back surgeries - most recent being lumbar in Jun 2021 with [place] placement GERD H/O cholecystectomy Family h/o CAD - Mother, father, brother and sister (see family h/o) Discussion and Recomendations Sudden onset of worsening SOB with assoc near syncope/nausea - no evidence of ac CHF or PE or pneumonia - Based on symptoms, h/o and risk factors advise further coronary w/u - serial troponin and ECG - if no evidence of ACS advise MPI Continue home medications for HTN Start ASA daily Further recs will be based on her hospital course. We would like to thank Dr. Funes for this consult JOYCELYN ARGUETA MD FACP FAC CCDS Apr 24, 2022 19:19
[2022-04-24] MEDS: meTOprolol TARTRATE 25 MG (LOPRESSOR) TABLET PO SCH (20:09)
[2022-04-24] MEDS: GABAPENTIN 100 MG (NEURONTIN) CAP PO SCH (20:17)
[2022-04-24 20:48] VITALS: BP 147/65
[2022-04-24] MEDS ORDERED: NON-FORMULARY MEDICATION 1 EA EA (Escitalopram Oxalate 10 MG) PO SCH (21:00)
[2022-04-24 22:07] LABS: BILIRUBIN,URINE NEGATIVE (NEGATIVE); CLARITY,URINE CLEAR; COLOR,URINE YELLOW; GLUCOSE, URINE (UA) NEGATIVE (NEGATIVE); KETONES,URINE NEGATIVE (NEGATIVE); LEUKOCYTE ESTERASE ,URINE NEGATIVE (NEGATIVE); NITRITE,URINE NEGATIVE (NEGATIVE); PROTEIN,URINE NEGATIVE (NEGATIVE)
[2022-04-24 22:17] LABS: BACTERIA,URINE NEGATIVE /HPF
[2022-04-24 23:27] VITALS: BP 122/58
[2022-04-25 03:32] VITALS: BP 118/66
[2022-04-25 06:01] LABS: HEMATOCRIT 32 % (35-52); HEMOGLOBIN 10.3 g/dL (11.5-16.0); MEAN CORPUSCULAR HEMOGLOBIN 32 pg (25-34); MEAN CORPUSCULAR HGB CONC 32 g/dL (32-36); MEAN CORPUSCULAR VOLUME 99 fL (80-99); MEAN PLATELET VOLUME 12.8 fL (9.0-12.2); PLATELET COUNT 160 10^3/uL (130-400); WHITE BLOOD COUNT 7.2 10^3/uL (4.3-11.0)
[2022-04-25 06:09] LABS: ALBUMIN 3.7 GM/DL (3.2-4.5); POTASSIUM 3.6 MMOL/L (3.6-5.0)
[2022-04-25 06:10] LABS: CALCIUM 9.3 MG/DL (8.5-10.1)
[2022-04-25 06:12] LABS: TOTAL PROTEIN 6.4 GM/DL (6.4-8.2)
[2022-04-25 06:13] LABS: BILIRUBIN,TOTAL 0.9 MG/DL (0.1-1.0)
[2022-04-25 06:15] LABS: CREATININE SERUM 1.32 MG/DL (0.60-1.30)
--- NOTE | 2022-04-25 07:31 | Discharge Summary ---
Diagnosis/Chief Complaint Date of Admission Apr 24, 2022 at 13:32 Date of Discharge Discharge Date: Apr 25, 2022 Admission Diagnosis Admission Diagnosis Chest pain Edema Dyspnea on exertion Nausea Abdominal pain Hypertension Chronic anxiety and depression Peripheral neuropathy Chronic back pain Hx of surgical intervention on lumbar spine Elevated myoglobin Discharge Diagnosis Chest pain (improved) Edema (improved) Dyspnea on exertion (improved) Nausea (improved) Abdominal pain (improved) Hypertension Chronic anxiety and depression Peripheral neuropathy Chronic back pain Hx of surgical intervention on lumbar spine Elevated myoglobin Reason Hospital Visit Judi is a 76 y/o female who presented to my office today with complaint of "not feeling well, having trouble breathing, nausea and edema". The patient reports that she has had edema intermittently for the past few weeks, she thinks maybe for a month. She has noticed swelling of her face over the past few weeks. She admits to eating more salty foods over the past few weeks. Discharge Summary Hospital Course Hospital Course Chest pain with Edema and Dyspnea on exertion - consult placed to Dr. Cramer - EKG, Pulm CTA and ECHO done -pulm CTA on 04/24/22 showed, according to radiology, no acute pulmonary embolus, cardiomegaly with no evidence of acute pulmonary edema. -echo on 04/24/22: The cavity size normal. Wall thickness normal. Systolic function normal. The estimated ejection fraction is 55-60%. There were no regional wall motion abnormalities identified. Pulmonary arteries: Systolic pressure is in the range of 20 mmHg to 25 mmHg - troponin negative - myoglobin mildly elevated - lipid panel negative - LE edema improved from yesterday after receiving Lasix 40mg IV. Left leg still larger than right. Pt reports that this is chronic since the back surgery she had in Jun 2021 - facial edema greatly improved - I&Os recorded, pt is down about 2L since yesterday - anticipate stress testing soon Nausea with Abdominal pain - PPI added yesterday - nausea has resolved - monitor symptoms Hypertension - resumed beta tani - continue home medications on discharge Chronic anxiety and depression - resumed escitalopram, continue at home Peripheral neuropathy with Chronic back pain from Hx of surgical intervention on lumbar spine - continue gabapentin at home dvt prophylaxis done with scd's and lovenox gi prophylaxis done with ppi Labs Laboratory Tests 04/24/22 15:21: Red Blood Count 3.45L, Hemoglobin 11.1L, Mean Corpuscular Volume 101H, Mean Platelet Volume 12.5H, Myoglobin 126.4H 04/24/22 20:30: 04/25/22 05:45: Red Blood Count 3.24L, Hemoglobin 10.3L, Mean Platelet Volume 12.8H, Hematocrit 32L, Blood Urea Nitrogen 22H, Creatinine 1.32H Procedures None. Discharge Physical Examination Allergies: Uncoded Allergies: DEPOMEDROL (Allergy, Unknown, 08/27/13) Vitals & I&Os Vital Signs Date Time Temp Pulse Resp B/P (MAP) Pulse Ox O2 Delivery O2 Flow Rate FiO2 04/25/22 03:32 35.9 58 18 118/66 (83) 98 Room Air General Appearance: Alert, Oriented X3, No Acute Distress Respiratory: Clear to Auscultation, Normal Air Movement Cardiovascular: Regular Rate, No Murmurs Abdominal: Soft, No Tenderness Extremities: No Cyanosis, Normal Pulses, Other (Improved edema in both LEs, left LE larger than right) Neuro: Normal Speech Psych/Mental Status: Mental Status NL Discharge Home Medications Reviewed and agree with Discharge Medication list on patient's Discharge Instruction sheet Instructions to Patient/Family Please see electronic discharge instructions given to patient. JOLEEN HEAD Apr 25, 2022 07:31
[2022-04-25] MEDS ORDERED: REGADENOSON 0.4 MG/5 ML SYR (LEXISCAN) IV ONE ×2 (08:00→11:16)
[2022-04-25 08:09] VITALS: BP 128/73
[2022-04-25] MEDS ORDERED: PANTOPRAZOLE 40 MG (PROTONIX) TAB PO SCH (09:00)
[2022-04-25] MEDS ORDERED: NON-FORMULARY MEDICATION 1 EA EA (Omeprazole 40 MG) PO SCH (09:00)
[2022-04-25] MEDS: meTOprolol TARTRATE 25 MG (LOPRESSOR) TABLET PO SCH (09:12)
[2022-04-25] MEDS: GABAPENTIN 100 MG (NEURONTIN) CAP PO SCH ×2 (09:12→13:00)
[2022-04-25 11:49] VITALS: BP 193/90
--- NOTE | 2022-04-25 12:42 | Progress Note - Cardiology ---
Cardiology SOAP Progress Note Subjective: Sitting up in recliner at the bedside No c/o CP, SOB or palpitations Objective: I&O/Vital Signs 04/25/22 04/25/22 04/25/22 04/25/22 01:00 03:32 07:00 08:00 Temp 35.9 Pulse 60 58 53 Resp 18 B/P (MAP) 118/66 (83) Pulse Ox 98 O2 Delivery Room Air Room Air 04/25/22 04/25/22 08:09 11:49 Temp 36.2 Pulse 58 51 Resp 18 B/P (MAP) 128/73 (91) 193/90 (124) Pulse Ox 100 96 O2 Delivery Room Air 04/25/22 00:00 Intake Total 730 ml Output Total 2425 ml Balance -1695 ml Weight (Pounds): 168 Weight (Calculated Kilograms): 76.083539 Constitutional: AAO x 3, well-developed, well-nourished Respiratory: No accessory muscle use, No respiratory distress; chest expansion is symmetric, chest is bilaterally symmetric, lungs clear to auscultation Cardiovascular: regular rate-rhythm; No JVD; S1 and S2 Gastrointestional: No tender; soft, round, audible bowel sounds Extremities: other (mod LE swelling; L>R) Neurologic/Psychiatric: grossly intact (moves all extremities) Skin: No rash on exposed areas, No ulcerations on exposed areas Results/Procedures: Labs Laboratory Tests 04/24/22 15:21: White Blood Count 9.0, Red Blood Count 3.45L, Hemoglobin 11.1L, Hematocrit 35, Mean Corpuscular Volume 101H, Mean Corpuscular Hemoglobin 32, Mean Corpuscular Hemoglobin Concent 32, Red Cell Distribution Width 12.9, Platelet Count 189, Mean Platelet Volume 12.5H, Immature Granulocyte % (Auto) 0, Neutrophils (%) (Auto) 66, Lymphocytes (%) (Auto) 24, Monocytes (%) (Auto) 8, Eosinophils (%) (Auto) 1, Basophils (%) (Auto) 1, Neutrophils # (Auto) 5.9, Lymphocytes # (Auto) 2.2, Monocytes # (Auto) 0.7, Eosinophils # (Auto) 0.1, Basophils # (Auto) 0.1, Immature Granulocyte # (Auto) 0.0, Prothrombin Time 13.2, INR Comment 1.0, Activated Partial Thromboplast Time 27, Sodium Level 140, Potassium Level 3.7, Chloride Level 103, Carbon Dioxide Level 24, Anion Gap 13, Blood Urea Nitrogen 18, Creatinine 1.26, Estimat Glomerular Filtration Rate 45, BUN/Creatinine Ratio 14, Glucose Level 92, Calcium Level 9.6, Corrected Calcium 9.4, Iron Level 56, Total Iron Binding Capacity 308, Unsaturated Iron Binding Capacity 252, Transferrin % Saturation 18, Ferritin 140.0, Total Bilirubin 0.9, Aspartate Amino Transf (AST/SGOT) 26, Alanine Aminotransferase (ALT/SGPT) 11, Alkaline Phosphatase 71, Myoglobin 126.4H, Troponin I < 0.028, Total Protein 7.3, Albumin 4.2 04/24/22 20:30: Urine Color YELLOW, Urine Clarity CLEAR, Urine pH 6.0, Urine Specific [place] <=1.005, Urine Protein NEGATIVE, Urine Glucose (UA) NEGATIVE, Urine Ketones NEGATIVE, Urine Nitrite NEGATIVE, Urine Bilirubin NEGATIVE, Urine Urobilinogen 0.2, Urine Leukocyte Esterase NEGATIVE, Urine RBC (Auto) NEGATIVE, Urine RBC NONE, Urine WBC NONE, Urine Squamous Epithelial Cells NONE, Urine Renal Epithelial Cells NONE, Urine Crystals NONE, Urine Bacteria NEGATIVE, Urine Casts NONE, Urine Mucus NEGATIVE, Urine Culture Indicated NO 04/25/22 05:45: White Blood Count 7.2, Red Blood Count 3.24L, Hemoglobin 10.3L, Hematocrit 32L, Mean Corpuscular Volume 99, Mean Corpuscular Hemoglobin 32, Mean Corpuscular Hemoglobin Concent 32, Red Cell Distribution Width 13.0, Platelet Count 160, Mean Platelet Volume 12.8H, Sodium Level 140, Potassium Level 3.6, Chloride Level 100, Carbon Dioxide Level 28, Anion Gap 12, Blood Urea Nitrogen 22H, Creatinine 1.32H, Estimat Glomerular Filtration Rate 42, BUN/Creatinine Ratio 17, Glucose Level 94, Calcium Level 9.3, Corrected Calcium 9.5, Total Bilirubin 0.9, Aspartate Amino Transf (AST/SGOT) 23, Alanine Aminotransferase (ALT/SGPT) 10, Alkaline Phosphatase 65, Total Protein 6.4, Albumin 3.7, Triglycerides Level 122, Cholesterol Level 185, LDL Cholesterol Direct 116, VLDL Cholesterol 24, HDL Cholesterol 43 A/P: Assessment: Sudden worsening of dyspnea with assoc near-syncope - undetermined etiology - Pulm CT angio on 04/24/22: 1. No acute pulmonary embolus. 2. Cardiomegaly. No evidence of acute pulmonary edema. - Echo on 04/24/22: The cavity size is normal. Wall thickness is normal. Systolic function is normal. The estimated ejection fraction is 55-60%. There were no regional wall motion abnormalities identified. Pulmonary arteries: Systolic pressure is in the range of 20 mm Hg to 25 mm Hg HTN HLD Chronic bilat LE swelling - L>R following back surgery in Jun [address] Silva at [place] - reports negative venous duplex in Sep 2021 - Negative venous Doppler left leg on 04/24/22 CKD-3 Peripheral neuropathy H/O multiple back surgeries - most recent being lumbar in Jun 2021 with [place] placement GERD H/O cholecystectomy Family h/o CAD - Mother, father, brother and sister (see family h/o) Plan: Sudden onset of worsening SOB with assoc near syncope/nausea - no evidence of ac CHF or PE or pneumonia - No evidence of ACS - MPI today Continue home medications for HTN Start ASA daily EFRA JOHNSON Apr 25, 2022 12:42
[2022-04-25 15:49] VITALS: BP 163/68
--- NOTE | 2022-04-25 17:01 | Progress Note - Cardiology ---
Cardiology SOAP Progress Note Subjective: No cp or palp or syncope or shortness of breath No weakness or malaise No n/v/d Objective: I&O/Vital Signs 04/25/22 04/25/22 04/25/22 04/25/22 07:00 08:00 08:09 11:49 Temp 36.2 Pulse 53 58 51 Resp 18 B/P (MAP) 128/73 (91) 193/90 (124) Pulse Ox 100 96 O2 Delivery Room Air Room Air 04/25/22 04/25/22 13:00 15:49 Temp 35.8 Pulse 57 56 Resp 18 B/P (MAP) 163/68 (99) Pulse Ox 96 O2 Delivery Room Air 04/25/22 00:00 Intake Total 730 ml Output Total 2425 ml Balance -1695 ml Weight (Pounds): 168 Weight (Calculated Kilograms): 76.651269 Constitutional: AAO x 3, well-developed, well-nourished Respiratory: No accessory muscle use, No respiratory distress; chest expansion is symmetric, chest is bilaterally symmetric, lungs clear to auscultation Cardiovascular: regular rate-rhythm; No JVD; S1 and S2 Gastrointestional: No tender; soft, round, audible bowel sounds Extremities: other (mod LE swelling; L>R) Neurologic/Psychiatric: other (moves all limbs equally) Skin: No rash on exposed areas, No ulcerations on exposed areas Results/Procedures: Labs Laboratory Tests 04/24/22 20:30: Urine Color YELLOW, Urine Clarity CLEAR, Urine pH 6.0, Urine Specific [place] <=1.005, Urine Protein NEGATIVE, Urine Glucose (UA) NEGATIVE, Urine Ketones NEGATIVE, Urine Nitrite NEGATIVE, Urine Bilirubin NEGATIVE, Urine Urobilinogen 0.2, Urine Leukocyte Esterase NEGATIVE, Urine RBC (Auto) NEGATIVE, Urine RBC NONE, Urine WBC NONE, Urine Squamous Epithelial Cells NONE, Urine Renal Epithelial Cells NONE, Urine Crystals NONE, Urine Bacteria NEGATIVE, Urine Casts NONE, Urine Mucus NEGATIVE, Urine Culture Indicated NO 04/25/22 05:45: White Blood Count 7.2, Red Blood Count 3.24L, Hemoglobin 10.3L, Hematocrit 32L, Mean Corpuscular Volume 99, Mean Corpuscular Hemoglobin 32, Mean Corpuscular Hemoglobin Concent 32, Red Cell Distribution Width 13.0, Platelet Count 160, Mean Platelet Volume 12.8H, Sodium Level 140, Potassium Level 3.6, Chloride Level 100, Carbon Dioxide Level 28, Anion Gap 12, Blood Urea Nitrogen 22H, Creatinine 1.32H, Estimat Glomerular Filtration Rate 42, BUN/Creatinine Ratio 17, Glucose Level 94, Calcium Level 9.3, Corrected Calcium 9.5, Total Bilirubin 0.9, Aspartate Amino Transf (AST/SGOT) 23, Alanine Aminotransferase (ALT/SGPT) 10, Alkaline Phosphatase 65, Total Protein 6.4, Albumin 3.7, Triglycerides Level 122, Cholesterol Level 185, LDL Cholesterol Direct 116, VLDL Cholesterol 24, HDL Cholesterol 43 Laboratory Tests 04/24/22 15:21 04/25/22 05:45 A/P: Assessment: Sudden worsening of dyspnea with assoc near-syncope - undetermined etiology - Pulm CT angio on 04/24/22: 1. No acute pulmonary embolus. 2. Cardiomegaly. No evidence of acute pulmonary edema. - Echo on 04/24/22: The cavity size is normal. Wall thickness is normal. Systolic function is normal. The estimated ejection fraction is 55-60%. There were no regional wall motion abnormalities identified. Pulmonary arteries: Systolic pressure is in the range of 20 mm Hg to 25 mm Hg - MPI on 04/25/22: No ischemia or infarction. LVEF 70% HTN HLD Chronic bilat LE swelling - L>R following back surgery in Jun [address] Silva at [place] - reports negative venous duplex in Sep 2021 - Negative venous Doppler left leg on 04/24/22 CKD-3 Peripheral neuropathy H/O multiple back surgeries - most recent being lumbar in Jun 2021 with [place] placement GERD H/O cholecystectomy Family h/o CAD - Mother, father, brother and sister (see family h/o) Plan: Cardiac status is stable Cardiac w/u is negative for any acute or significant problem Risk factor mod advised Outpt f/u advised JOYCELYN ARGUETA MD [facility] Apr 25, 2022 17:01
[2022-04-25] MEDS ORDERED: FURO-124 PO (17:36)
--- NOTE | 2022-04-25 17:38 | Discharge Inst-Simple/Standard ---
Discharge Inst-Standard Reconcile Patient Problems Problems Reviewed?: Yes Discharge Medications New, Converted or Re-Newed RX: Transmitted to Pharmacy Patient Instructions/Follow Up Plan of Care/Instructions/FU: 10 -[address] up - call the office and ask to be put on at the end of the day with - per dr's direction Activity as Tolerated: Yes Discharge Diet: Low Sodium Diet Health Concerns: edema hypertension Return to The Hospital For: any concern for worsening shortness of breath, chest discomfort, worsening swelling or other lifethreatening illness or injury Medication List: Active Scripts Active Lasix (Furosemide) 40 Mg Tablet 40 Mg PO UD take twice weekly on schedule and up to 3 more days during the week if swelling in lower legs (take on friday and tuesdays) Reported Pravastatin Sodium 10 Mg Tablet 10 Mg PO HS Escitalopram Oxalate 10 Mg Tablet 10 Mg PO HS Gabapentin 100 Mg Capsule 200 Mg PO TID TAKES 2 (100MG) CAPS Omeprazole 40 Mg Capsule.dr 40 Mg PO DAILY Triamterene-Hctz 37.5-25 mg Tb (Triamterene/Hydrochlorothiazid) 37.5 Mg-25 Mg Tablet 1 Ea PO DAILY Metoprolol Tartrate 25 Mg Tablet 12.5 Mg PO BID TAKES OF A 25MG Lab results: Laboratory Tests Test 04/24/22 20:30 04/25/22 05:45 Range/Units Urine Color YELLOW Urine Clarity CLEAR Urine pH 6.0 5-9 Urine Specific [place] <=1.005 1.016-1.022 Urine Protein NEGATIVE NEGATIVE Urine Glucose (UA) NEGATIVE NEGATIVE Urine Ketones NEGATIVE NEGATIVE Urine Nitrite NEGATIVE NEGATIVE Urine Bilirubin NEGATIVE NEGATIVE Urine Urobilinogen 0.2 < = 1.0 MG/DL Urine Leukocyte Esterase NEGATIVE NEGATIVE Urine RBC (Auto) NEGATIVE NEGATIVE Urine RBC NONE /HPF Urine WBC NONE /HPF Urine Squamous Epithelial Cells NONE /HPF Urine Renal Epithelial Cells NONE /HPF Urine Crystals NONE /LPF Urine Bacteria NEGATIVE /HPF Urine Casts NONE /LPF Urine Mucus NEGATIVE /LPF Urine Culture Indicated NO White Blood Count 7.2 4.3-11.0 10^3/uL Red Blood Count 3.24 L 3.80-5.11 10^6/uL Hemoglobin 10.3 L 11.5-16.0 g/dL Hematocrit 32 L 35-52 % Mean Corpuscular Volume 99 80-99 fL Mean Corpuscular Hemoglobin 32 25-34 pg Mean Corpuscular Hemoglobin Concent 32 32-36 g/dL Red Cell Distribution Width 13.0 10.0-14.5 % Platelet Count 160 130-400 10^3/uL Mean Platelet Volume 12.8 H 9.0-12.2 fL Sodium Level 140 135-145 MMOL/L Potassium Level 3.6 3.6-5.0 MMOL/L Chloride Level 100 98-107 MMOL/L Carbon Dioxide Level 28 21-32 MMOL/L Anion Gap 12 5-14 MMOL/L Blood Urea Nitrogen 22 H 7-18 MG/DL Creatinine 1.32 H 0.60-1.30 MG/DL Estimat Glomerular Filtration Rate 42 BUN/Creatinine Ratio 17 Glucose Level 94 70-105 MG/DL Calcium Level 9.3 8.5-10.1 MG/DL Corrected Calcium 9.5 8.5-10.1 MG/DL Total Bilirubin 0.9 0.1-1.0 MG/DL Aspartate Amino Transf (AST/SGOT) 23 5-34 U/L Alanine Aminotransferase (ALT/SGPT) 10 0-55 U/L Alkaline Phosphatase 65 40-136 U/L Total Protein 6.4 6.4-8.2 GM/DL Albumin 3.7 3.2-4.5 GM/DL Triglycerides Level 122 <150 MG/DL Cholesterol Level 185 < 200 MG/DL LDL Cholesterol Direct 116 1-129 MG/DL VLDL Cholesterol 24 5-40 MG/DL HDL Cholesterol 43 40-60 MG/DL My orders: Orders - KIRSTEN UP MD Gabapentin Capsule/Tablet (Neurontin Cap (04/24/22 21:00) Metoprolol Tartrate (Ir) Tab (Lopressor (04/24/22 21:00) (Nf) Escitalopram Oxalate (04/24/22 21:00) (Nf) Omeprazole (04/25/22 09:00) Enoxaparin Injection (Lovenox Injection) (04/24/22 18:30) Pantoprazole Tablet (Protonix Tablet) (04/25/22 09:00) Pantoprazole Tablet (Protonix Tablet) (04/24/22 18:30) Citalopram Tablet (Celexa Tablet) (04/24/22 21:00) Sodium 2g (2000 Mg) (04/25/22 Lunch) Attending Discharge Inpt/Inobs (04/25/22 17:32) KIRSTEN UP MD Apr 25, 2022 17:38
--- NOTE | 2022-04-25 23:30 | STRESS TEST ---
DATE OF SERVICE: 04/24/2022 RESTING AND POST REGADENOSON TECHNETIUM-99M TETROFOSMIN SPECT CT IMAGING ORDERING PHYSICIAN: Rhoda Shoemaker APRN PRIMARY PHYSICIAN: Dr. Funes. CLINICAL DIAGNOSIS: Chest discomfort. Baseline images were carried out after injection of 10.66 mCi of technetium-99m Tetrofosmin. This was followed by 0.4 mg regadenoson and 31.1 mCi of technetium-99m Tetrofosmin for stress imaging. The electrocardiogram showed sinus rhythm at baseline. It did not change significantly with regadenoson infusion. Review of images at rest and following stress does not indicate any significant perfusion defects consistent with significant myocardial ischemia or infarction. Gated images show normal global left ventricular systolic function with normal regional wall motion. Left ventricular ejection fraction is calculated to be 70%. CONCLUSIONS: 1. No evidence of any significant myocardial ischemia or infarction on this study. 2. Normal regional wall motion. 3. Normal global left ventricular systolic function with a calculated ejection fraction of 70%. Job ID: [id number] DocumentID: [id number] Dictated Date: 04/25/2022 16:54:22 Development Spec Date: 04/25/2022 23:29:52 Dictated By: JOYCELYN ARGUETA MD, MA, FACP, FACC,
== END 2022-04-25 18:02 | disposition home or self-care (01) ==
LOC: 4TH 13:32
PROVIDERS: ADMIT Family Medicine; ATTEND Family Medicine
DX: R07.9 Chest pain, unspecified (principal); R06.00 Dyspnea, unspecified; R60.9 Edema, unspecified; R11.0 Nausea; R10.9 Unspecified abdominal pain; I12.9 Hypertensive chronic kidney disease with stage 1 through stage 4 chronic kidney disease, or unspecified chronic kidney disease; N18.30 Chronic kidney disease, stage 3 unspecified; F41.9 Anxiety disorder, unspecified; F32.A Depression, unspecified; G62.9 Polyneuropathy, unspecified; M54.9 Dorsalgia, unspecified; E78.00 Pure hypercholesterolemia, unspecified; K21.9 Gastro-esophageal reflux disease without esophagitis; I10 Essential (primary) hypertension; Z82.49 Family history of ischemic heart disease and other diseases of the circulatory system; Z88.8 Allergy status to other drugs, medicaments and biological substances
CPT/HCPCS: 71046; 71275; 78452; 80053 ×2; 80061; 81000; 82728; 83540; 83550; 83874; 84484; 85025; 85027; 85610; 85730; 93005; 93017; 93306; 93971; A9502; 36415; 96372; 96374; 96375

== ENCOUNTER → 2022-07-16 | Outpatient (CLI) | payer MEDICARE ==
[~2022-07-16] MED LIST changes: +ESCI-2 PO; +FURO-124 PO; +FURO20TA4 PO; +GABA-486 PO; +METO-333 PO; +OMEP40CA6 PO; +PRAV10TA PO; +TRIA1TAB3 PO
--- NOTE | 2022-07-16 16:46 | Diagnostic Imaging Report ---
INDICATION: Limited range of motion and pain in right hip. FINDINGS: Two views of the right hip show no fracture, dislocation, or other acute abnormalities. IMPRESSION: Unremarkable right hip. Dictated by: Dictated on workstation # [id number]
== END ==
LOC: RAD 11:57
PROVIDERS: ATTEND Nurse Practitioner Family
DX: M25.551 Pain in right hip (principal)
CPT/HCPCS: 73502

== ENCOUNTER 2023-03-02 13:12 | Inpatient (IN) | payer MEDICARE ==
[~2023-03-02] VITALS: Ht 157 cm; Wt 90.0 kg
[2023-03-02] VITALS (8 sets, daily range): BP systolic 133–151; BP diastolic 16–82
--- NOTE | 2023-03-02 13:28 | ED Respiratory ---
General Chief Complaint: Respiratory Problems Stated Complaint: SOA VOMITTING HEART PALP Nursing Triage Note: SOA STARTING YESTERDAY ALONG WITH NO STRENGTH. Source: patient Exam Limitations: no limitations History of Present Illness Date Seen by Provider: March 02, 2023 Time Seen by Provider: 13:18 Initial Comments 87-year-old female presents emergency department today for shortness of breath and fatigue. She states she will be walking and her legs will just give out spontaneously. Symptoms present for about 2 days but she did have a similar episode about a month ago and spontaneously improved so she did not really seek care at that time. No fevers or chills. She has a mild nonproductive cough. She gets significantly winded, especially with much exertion. She denies any chest pain. No abdominal pain or changes in bowel or bladder habits. All other systems reviewed and negative except documented per HPI. Voice recognition software was used to help create this chart Allergies and Home Medications Allergies Uncoded Allergies: DEPOMEDROL (Allergy, Unknown, 08/27/13) Patient Home Medication List Home Medication List Reviewed: Yes Escitalopram Oxalate (Escitalopram Oxalate) 10 Mg Tablet, 10 MG PO HS, (Reported) Entered as Reported by: KENZIE ROMAN on 04/24/221623 Furosemide (Lasix) 40 Mg Tablet, 40 MG PO UD Prescribed by: KIRSTEN MELISSA on 04/25/22 173 Gabapentin (Gabapentin) 100 Mg Capsule, 200 MG PO TID, (Reported) Entered as Reported by: KENZIE ROMAN on 04/24/221623 Metoprolol Tartrate (Metoprolol Tartrate) 25 Mg Tablet, 12.5 MG PO BID, (Reported) Entered as Reported by: KENZIE ROMAN on 04/24/22 162 Omeprazole (Omeprazole) 40 Mg Capsule.dr, 40 MG PO DAILY, (Reported) Entered as Reported by: KENZIE ROMAN on 04/24/221623 Pravastatin Sodium (Pravastatin Sodium) 10 Mg Tablet, 10 MG PO HS, (Reported) Entered as Reported by: KENZIE ROMAN on 04/24/221623 Triamterene/Hydrochlorothiazid (Triamterene-Hctz 37.5-25 mg Tb) 37.5 Mg-25 Mg Tablet, 1 EA PO DAILY, (Reported) Entered as Reported by: KENZIE ROMAN on 04/24/221623 Review of Systems Review of Systems Constitutional: see HPI Past Kiq[place]a-Ocsrmo-Aygocd Hx Patient Social History Tobacco Use?: No Substance use?: No Alcohol Use?: No Immunizations Up To Date COVID19 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 Seasonal Allergies Seasonal Allergies: No Past Medical History Surgeries: Yes (3 NECK SURGERY, TONSILS AND APENDIX OUT, 2-LUMBAR SX) Appendectomy, Section, Gallbladder, Neurological, Tonsillectomy Respiratory: No Currently Using CPAP: No Currently Using BIPAP: No Cardiac: No High Cholesterol, Hypertension Neurological: Yes Vertigo Reproductive Disorders: No Female Reproductive Disorders: Denies Sexually Transmitted Disease: No HIV/AIDS: No Gastrointestinal: No Musculoskeletal: Yes Arthritis, Chronic Back Pain Endocrine: No Hearing Impairment: Denies Cancer: No Psychosocial: No Anxiety, Depression Integumentary: No Blood Disorders: No Adverse Reaction/Blood Tranf: No Family Medical History Family history: Arthritis 09 SISTER, Onset:40's - 50 09 SISTER, Onset:40's - 50 Family history: Cardiovascular disease 03 FATHER, Onset:50's - 60 03 MOTHER, Onset:60 years & older 09 BROTHER, Onset:60 years & older 09 SISTER, Onset:60 years & older Heart disease 09 SISTER, Onset:60 years & older Heart Disease, Hypertension, Renal Disease Physical Exam Vital Signs - First Documented 03/02/23 13:16 Temp 37.2 Pulse 113 Resp 16 B/P (MAP) 178/80 (112) Pulse Ox 94 O2 Delivery Room Air Capillary Refill : Less Than 3 Seconds Height: '" Weight: 168lbs. oz. 76.271964na; 36.00 BMI Method: General Appearance: WD/WN, no apparent distress HEENT: PERRL/EOMI, normal ENT inspection, TMs normal, pharynx normal Neck: non-tender, supple, normal inspection Respiratory: chest non-tender, lungs clear, normal breath sounds, no respi ratory distress, no accessory muscle use Cardiovascular: no murmur, tachycardia Gastrointestinal: normal bowel sounds, non tender, soft, no organomegaly Extremities: normal range of motion, normal inspection, no pedal edema, no calf tenderness, normal capillary refill Neurologic/Psychiatric: alert, normal mood/affect, oriented x 3 Skin: normal color, warm/dry Focused Exam Lactate Level 03/02/23 13:34: Lactic Acid Level 1.96 Lactic Acid Level Laboratory Tests Test 03/02/23 13:34 Lactic Acid Level 1.96 MMOL/L (0.50-2.00) Progress/Results/Core Measures Suspected Sepsis SIRS Temperature: Pulse: 113 Respiratory Rate: 16 Laboratory Tests 03/02/23 13:20: White Blood Count 3.2L Blood Pressure 178 /80 Mean: 112 03/02/23 13:34: Lactic Acid Level 1.96 Laboratory Tests 03/02/23 13:20: Creatinine 1.43H, Platelet Count 116L, Total Bilirubin 1.1H Results/Orders Lab Results Laboratory Tests Test 03/02/23 13:20 03/02/23 13:30 03/02/23 13:34 Range/Units White Blood Count 3.2 L 4.3-11.0 10^3/uL Red Blood Count 1.74 L 3.80-5.11 10^6/uL Hemoglobin 6.2 *L 11.5-16.0 g/dL Hematocrit 18 *L 35-52 % Mean Corpuscular Volume 105 H 80-99 fL Mean Corpuscular Hemoglobin 36 H 25-34 pg Mean Corpuscular Hemoglobin Concent 34 32-36 g/dL Red Cell Distribution Width 16.3 H 10.0-14.5 % Platelet Count 116 L 130-400 10^3/uL Mean Platelet Volume 12.0 9.0-12.2 fL Immature Granulocyte % (Auto) 9 % Neutrophils (%) (Auto) 32 L 42-75 % Lymphocytes (%) (Auto) 43 12-44 % Monocytes (%) (Auto) 15 H 0-12 % Eosinophils (%) (Auto) 1 0-10 % Basophils (%) (Auto) 1 0-10 % Neutrophils # (Auto) 1.0 L 1.8-7.8 10^3/uL Lymphocytes # (Auto) 1.4 1.0-4.0 10^3/uL Monocytes # (Auto) 0.5 0.0-1.0 10^3/uL Eosinophils # (Auto) 0.0 0.0-0.3 10^3/uL Basophils # (Auto) 0.0 0.0-0.1 10^3/uL Immature Granulocyte # (Auto) 0.3 H 0.0-0.1 10^3/uL Percent Immature Platelet Fraction 6.7 0.0-7.6 % Sodium Level 139 135-145 MMOL/L Potassium Level 3.0 L 3.6-5.0 MMOL/L Chloride Level 99 98-107 MMOL/L Carbon Dioxide Level 23 21-32 MMOL/L Anion Gap 17 H 5-14 MMOL/L Blood Urea Nitrogen 24 H 7-18 MG/DL Creatinine 1.43 H 0.60-1.30 MG/DL Estimat Glomerular Filtration Rate 38 BUN/Creatinine Ratio 17 Glucose Level 158 H 70-105 MG/DL Calcium Level 9.7 8.5-10.1 MG/DL Corrected Calcium 9.9 8.5-10.1 MG/DL Total Bilirubin 1.1 H 0.1-1.0 MG/DL Aspartate Amino Transf (AST/SGOT) 14 5-34 U/L Alanine Aminotransferase (ALT/SGPT) 9 0-55 U/L Alkaline Phosphatase 72 40-136 U/L Troponin I < 0.028 <0.028 NG/ML Total Protein 7.8 6.4-8.2 GM/DL Albumin 3.7 3.2-4.5 GM/DL Lactic Acid Level 1.96 0.50-2.00 MMOL/L My Orders Orders - BEULAH MICHAELS DO Cbc With Automated Diff (03/02/23 13:26) Comprehensive Metabolic Panel (03/02/23 13:26) Blood Culture (03/02/23 13:26) Chest 1 View, Ap/Pa Only (03/02/23 13:26) Ed Iv/Invasive Line Start (03/02/23 13:26) Vital Signs Adult Sepsis Patie Q15M (03/02/23 13:26) Lactic Acid Analyzer (03/02/23 13:26) Covid 19 Inhouse Test (03/02/23 13:26) Troponin I Vivek (03/02/23 13:28) Ekg Tracing (03/02/23 13:28) Ondansetron Injection (Zofran Injectio (03/02/23 13:30) Type And Screen (03/02/23 13:45) Red Cells Leukocytes Reduced (03/02/23 13:45) Ua Culture If Indicated (03/02/23 14:09) Medications Given in ED Current Medications Medications Dose Ordered Sig/Jas Route Start Time Stop Time Status Last Admin Dose Admin Ondansetron HCl 8 mg ONCE ONCE IVP 03/02/23 13:30 03/02/23 13:31 DC 03/02/23 13:38 8 MG Vital Signs/I&O 03/02/23 03/02/23 13:16 13:24 Temp 37.2 Pulse 113 Resp 16 B/P (MAP) 178/80 (112) Pulse Ox 94 O2 Delivery Room Air Room Air Capillary Refill : Less Than 3 Seconds Blood Pressure Mean: 112 ECG Comment EKG shows sinus tachycardia 102 bpm. Normal intervals. Left axis deviation. No ST or T wave abnormalities. No ectopy. No STEMI. Critical Care Note Critical Care Total Time (minutes) 45 Departure Communication (Admissions) Patient hemoglobin is 6.2. Type and screen, 2 units packed red blood cells ordered to be transfused. EKG is nonischemic. Remainder of the work-up is pending. Patient currently hypokalemic ordered p.o. repletion. She also has a lot of ARETHA. Red blood cell transfusion should help with this. I spoke with Dr. Jeffery who excepts admission. No evidence for infection. No indication for antibiotics. She is normotensive, not in hemorrhagic shock. Only vital abnormality is mild tachycardia. She feels otherwise well and speaks in complete sentences. Oxygen saturation is normal. Impression Primary Impression: Anemia Qualified Codes: D64.9 - Anemia, unspecified Disposition: ADMITTED INPATIENT Condition: Stable Departure-Patient Inst. Referrals: KIRSTEN MELISSA MD (PCP/Family) Primary Care Physician BEULAH MICHAELS DO March 02, 2023 13:28
[2023-03-02] MEDS ORDERED: ONDANSETRON 4 MG/2 ML (SDV) Z0FRAN IVP ONE (13:30)
[2023-03-02 13:42] LABS: BASOPHILS % (AUTO) 1 % (0-10); EOSINOPHILS % (AUTO) 1 % (0-10); LYMPHOCYTES # (AUTO) 1.4 10^3/uL (1.0-4.0); LYMPHOCYTES % (AUTO) 43 % (12-44); MEAN CORPUSCULAR HEMOGLOBIN 36 pg (25-34); MEAN CORPUSCULAR HGB CONC 34 g/dL (32-36); MEAN CORPUSCULAR VOLUME 105 fL (80-99); MONOCYTES # (AUTO) 0.5 10^3/uL (0.0-1.0); MONOCYTES % (AUTO) 15 % (0-12); NEUTROPHILS % (AUTO) 32 % (42-75); PLATELET COUNT 116 10^3/uL (130-400); WHITE BLOOD COUNT 3.2 10^3/uL (4.3-11.0)
[2023-03-02 13:43] LABS: HEMATOCRIT 18 % (35-52); HEMOGLOBIN 6.2 g/dL (11.5-16.0)
[2023-03-02 13:45] LABS: ALBUMIN 3.7 GM/DL (3.2-4.5); CHLORIDE 99 MMOL/L (98-107); SODIUM 139 MMOL/L (135-145)
[2023-03-02 13:46] LABS: CALCIUM 9.7 MG/DL (8.5-10.1)
[2023-03-02 13:47] LABS: GLUCOSE 158 MG/DL (70-105)
[2023-03-02 13:48] LABS: TOTAL PROTEIN 7.8 GM/DL (6.4-8.2)
[2023-03-02 13:49] LABS: BILIRUBIN,TOTAL 1.1 MG/DL (0.1-1.0); CARBON DIOXIDE 23 MMOL/L (21-32)
[2023-03-02 13:51] LABS: ALKALINE PHOSPHATASE 72 U/L (40-136); CREATININE SERUM 1.43 MG/DL (0.60-1.30); GFR ESTIMATED 38
[2023-03-02 13:52] LABS: BUN/CREATININE RATIO 17
[2023-03-02 13:54] LABS: ALANINE AMINOTRANSFERASE 9 U/L (0-55)
--- NOTE | 2023-03-02 13:59 | Diagnostic Imaging Report ---
INDICATION: Shortness of air. FINDINGS: Lungs are clear. No failure, effusion or pneumothorax. IMPRESSION: No acute appearing abnormality. Dictated by: Dictated on workstation # [id number]
[2023-03-02] MEDS ORDERED: KCL 20 MEQ TAB (K-DUR) PO STA (14:12)
[2023-03-02] MEDS ORDERED: NS IV 500 ML 500 ML IV PRN (15:00)
[2023-03-02] MEDS ORDERED: ONDANSETRON 4 MG/2 ML (SDV) Z0FRAN IV PRN (15:15)
[2023-03-02 16:20] LABS: BILIRUBIN,URINE NEGATIVE (NEGATIVE); CLARITY,URINE CLEAR; COLOR,URINE YELLOW; GLUCOSE, URINE (UA) NEGATIVE (NEGATIVE); KETONES,URINE NEGATIVE (NEGATIVE); LEUKOCYTE ESTERASE ,URINE NEGATIVE (NEGATIVE); NITRITE,URINE NEGATIVE (NEGATIVE); PROTEIN,URINE 1+ (NEGATIVE)
[2023-03-02 16:30] LABS: BACTERIA,URINE TRACE /HPF; WBC,URINE 0-2 /HPF
[2023-03-03] VITALS (12 sets, daily range): BP systolic 114–157; BP diastolic 68–97
[2023-03-03 06:07] LABS: BASOPHILS % (AUTO) 1 % (0-10); EOSINOPHILS % (AUTO) 1 % (0-10); HEMATOCRIT 24 % (35-52); HEMOGLOBIN 8.6 g/dL (11.5-16.0); LYMPHOCYTES # (AUTO) 1.2 10^3/uL (1.0-4.0); LYMPHOCYTES % (AUTO) 47 % (12-44); MEAN CORPUSCULAR HEMOGLOBIN 34 pg (25-34); MEAN CORPUSCULAR HGB CONC 35 g/dL (32-36); MEAN CORPUSCULAR VOLUME 95 fL (80-99); MEAN PLATELET VOLUME 11.8 fL (9.0-12.2); MONOCYTES # (AUTO) 0.4 10^3/uL (0.0-1.0); MONOCYTES % (AUTO) 16 % (0-12); NEUTROPHILS # (AUTO) 0.9 10^3/uL (1.8-7.8); NEUTROPHILS % (AUTO) 36 % (42-75); PLATELET COUNT 85 10^3/uL (130-400); WHITE BLOOD COUNT 2.6 10^3/uL (4.3-11.0)
[2023-03-03 06:10] LABS: POTASSIUM 3.6 MMOL/L (3.6-5.0)
[2023-03-03 06:16] LABS: CREATININE SERUM 1.28 MG/DL (0.60-1.30)
[2023-03-03 06:36] LABS: ATYPICAL LYMPHOCYTES 10 %; LYMPHOCYTES % (MANUAL) 50 %; MONOCYTES % (MANUAL) 12 %; NEUTROPHILS % (MANUAL) 30 %
[2023-03-03 06:37] LABS: ANISOCYTOSIS SLIGHT; HYPOCHROMASIA SLIGHT; PLATELET ESTIMATE DECREASED
[2023-03-03 10:00] LABS: ABSOLUTE RETIC # 23 10e9/uL (24-90); BASOPHILS % (AUTO) 0 % (0-10); EOSINOPHILS % (AUTO) 1 % (0-10); HEMATOCRIT 24 % (35-52); HEMOGLOBIN 8.6 g/dL (11.5-16.0); LYMPHOCYTES # (AUTO) 1.1 10^3/uL (1.0-4.0); LYMPHOCYTES % (AUTO) 41 % (12-44); MEAN CORPUSCULAR HEMOGLOBIN 34 pg (25-34); MEAN CORPUSCULAR HGB CONC 36 g/dL (32-36); MEAN CORPUSCULAR VOLUME 94 fL (80-99); MEAN PLATELET VOLUME 12.9 fL (9.0-12.2); MONOCYTES # (AUTO) 0.6 10^3/uL (0.0-1.0); MONOCYTES % (AUTO) 20 % (0-12); NEUTROPHILS # (AUTO) 0.8 10^3/uL (1.8-7.8); NEUTROPHILS % (AUTO) 29 % (42-75); RETICULOCYTE % 0.91 % (0.50-2.40); WHITE BLOOD COUNT 2.7 10^3/uL (4.3-11.0)
--- NOTE | 2023-03-03 10:00 | History & Physical ---
History of Present Illness HPI/Chief Complaint CC: Severe and symptomatic anemia requiring 2 units of blood HPI: This is a 77yoWF clinic patient of Dr Funes who presented to the ER with dyspnea and found to have hgb 6.2 with severe weakness. She could no longer walk on her won and ordinarily does not use an AD. Patient denies any bleeding. She has never had a colonoscopy but did have a hemoccult Colonguard last year and it was negative. I have added multiple labs to the ones already drawn and she wants to go home soon. Dr Torres performed her choly in the past and has requested him in consultation for scopes. Source: patient Exam Limitations: no limitations Date Seen 03/03/23 Time Seen by a Provider: 10:00 Attending Physician Millicent Funes MD PCP Admitting Physician: Sravani Palacios MD Attending Physician: Claudia Loomis DO Referring Physician Date of Admission March 02, 2023 at 14:11 Home Medications & Allergies Home Medications Reviewed patient Home Medication Reconciliation performed by pharmacy medication reconciliations rd lab technician and/or nursing. Patients Allergies have been reviewed. Allergies Allergies Uncoded Allergies DEPOMEDROL ( Allergy, Unknown, 08/27/13) Past Wjeshoi-Mwxtdf-Thclmr Hx Past Med/Social Hx: Reviewed Nursing Past Med/Soc Hx, Reviewed and Corrections made Patient Social History Marrital Status: single Employed/Student: retired Alcohol Use: Denies Use Smoking Status: Never a Smoker 2nd Hand Smoke Exposure: No Recent Hopitalizations: Yes Seasonal Allergies Seasonal Allergies: No Past Medical History Surgeries: Appendectomy, Section, Gallbladder, Neurological, Tonsillectomy Currently Using CPAP: No Currently Using BIPAP: No Cardiac: High Cholesterol, Hypertension Neurological: Vertigo Reproductive: No Sexually Transmitted Disease: No HIV/AIDS: No Female Reproductive Disorders: Denies Musculoskeletal: Arthritis, Chronic Back Pain Hearing Impairment: Denies Psychosocial: Anxiety, Depression History of Blood Disorders: No Adverse Reaction to Blood [place]: No Family History Family history: Arthritis 09 SISTER, Onset:40's - 50 09 SISTER, Onset:40's - 50 Family history: Cardiovascular disease 03 FATHER, Onset:50's - 60 03 MOTHER, Onset:60 years & older 09 BROTHER, Onset:60 years & older 09 SISTER, Onset:60 years & older Heart disease 09 SISTER, Onset:60 years & older Heart Disease, Hypertension, Renal Disease Review of Systems Constitutional: see HPI, dizziness, malaise, weakness EENTM: no symptoms reported Respiratory: no symptoms reported Cardiovascular: no symptoms reported Gastrointestinal: no symptoms reported Genitourinary: no symptoms reported Musculoskeletal: no symptoms reported Skin: no symptoms reported Psychiatric/Neurological: No Symptoms Reported All Other Systems Reviewed Negative Unless Noted: Yes Physical Exam Physical Exam Vital Signs Vital Signs - First Documented 03/02/23 13:16 Temp 37.2 Pulse 113 Resp 16 B/P (MAP) 178/80 (112) Pulse Ox 94 O2 Delivery Room Air Capillary Refill : Less Than 3 Seconds Height, Weight, BMI Height: '" Weight: 168lbs. oz. 76.232635wj; 36.51 BMI Method: General Appearance: No Apparent Distress, WD/WN, Chronically ill Eyes: Bilateral Eye Normal Inspection, Bilateral Eye PERRL HEENT: PERRL/EOMI, Normal ENT Inspection, Pharynx Normal Neck: Full Range of Motion, Normal Inspection, Non Tender, Supple, Carotid Bruit Respiratory: Chest Non Tender, Lungs Clear, Normal Breath Sounds, No Accessory Muscle Use, No Respiratory Distress Cardiovascular: Regular Rate, Rhythm, No Edema, No Gallop, No JVD, No Murmur, Normal Peripheral Pulses Gastrointestinal: Normal Bowel Sounds, No Organomegaly, No Pulsatile Mass, Non Tender, Soft Back: Normal Inspection, No CVA Tenderness, No Vertebral Tenderness Extremity: Normal Capillary Refill, Normal Inspection, Normal Range of Motion, Non Tender, No Calf Tenderness, No Pedal Edema Neurologic/Psychiatric: Alert, Oriented x3, No Motor/Sensory Deficits, Normal 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 Assessment/Plan Admission Diagnosis Assessment: Severe and symptomatic anemia s/p 2 units of blood HTN HLP Chronic back pain managed by Dr Flores Plan: Occult stools Dr Torres consult Home meds PPI Suspect myeloid issue so w/u added to already drawn labs Admission Status: Inpatient Order (span 2 midnights) Reason for Inpatient Admission: anemia CLAUDIA LOOMIS DO March 03, 2023 10:00
[2023-03-03] MEDS: PANTOPRAZOLE 40 MG (PROTONIX) TAB PO SCH (10:31)
[2023-03-03 10:44] LABS: BAND NEUTROPHILS 0 %; BASOPHILS % (MANUAL) 0 %; EOSINOPHILS % (MANUAL) 0 %; LYMPHOCYTES % (MANUAL) 56 %; MONOCYTES % (MANUAL) 18 %; NEUTROPHILS % (MANUAL) 26 %; PLATELET COUNT 63 10^3/uL (130-400)
[2023-03-03 10:45] LABS: ANISOCYTOSIS MARKED; POLYCHROMASIA MODERATE
[2023-03-03] MEDS ORDERED: PANT40TA52 PO (13:47)
[2023-03-03] MEDS ORDERED: POTA-177 PO (13:48)
[2023-03-03] MEDS ORDERED: FURO40TA4 PO (13:48)
[2023-03-03] MEDS ORDERED: CELE-63 PO (13:49)
[2023-03-03] MEDS ORDERED: ACET-2267 PO (13:50)
[2023-03-03] MEDS ORDERED: ALPR0.5T7 PO (13:50)
[2023-03-03] MEDS ORDERED: fentaNYL INJ 100 MCG/2 ML AMP IVP ONE (14:00)
[2023-03-03] MEDS ORDERED: LIDOCAINE 1% INJ 10 ML VIAL INJ ONE (14:00)
[2023-03-03] MEDS ORDERED: MIDAZOLAM 2 MG/2 ML (VERSED) VIAL IVP ONE (14:00)
--- NOTE | 2023-03-03 14:45 | Pre-Op Note & Conscious Sedat ---
Pre-Operative Progress Note Date of Available H&P: March 03, 2023 Date H&P Reviewed: March 03, 2023 Time H&P Reviewed: 14:00 Pre-Op Diagnosis: anemia Moderate Sedation PreProcedure Time 14:00 ASA Score 2 Airway Lungs Heart ASA score ASA 1: a normal healthy patient ASA 2: a patient with a mild systemic disease (mid diabetes, controlled hypertension, obesity ASA 3: a patient with a severe systemic disease that limits activity (angina, COPD, prior Myocardial infarction) ASA 4: a patient with an incapacitating disease that is a constant threat to life (CHF, renal failure) ASA 5: a moribund patient not expected to survive 24 hrs. (ruptured aneurysm) ASA 6: a declared brain- patient whose organs are being harvested. For emergent operations, add the letter E after the classification Mallampati Classification Grade 2 Sedation Plan Analgesia, Amnesia, Plan communicated to team members, Discussed options with patient/fam, Discussed risks with patient/fam The patient is an appropriate candidate to undergo the planned procedure, sedation, and anesthesia. The patient immediately re-assessed prior to indication. SARAH SCHNEIDER MD March 03, 2023 14:45
[2023-03-03] MEDS: ACETAMINOPHEN 325 MG TABLET PO PRN ×2 (14:47→19:22)
--- NOTE | 2023-03-03 14:51 | Diagnostic Imaging Report ---
INDICATION: Low hemoglobin. Patient presents for CT-guided bone marrow aspiration and core biopsy. FINDINGS: Patient was brought to the CT suite, placed on table in the prone position. Axial imaging through the pelvis was performed to evaluate appropriate entry site. Low back was then prepped and draped in the usual sterile fashion. Small amount of 1% lidocaine was utilized for local anesthesia. A bone marrow biopsy needle was advanced and placed with its tip along the posterior cortex of the right iliac bone. The needle was advanced through the cortex utilizing the bone marrow drill. Two bone marrow aspirates were then obtained. Next, the bone marrow drill was utilized to obtain a bone marrow core biopsy. Needle was removed and hemostasis was obtained. Patient tolerated the procedure well and left the department in stable condition. IMPRESSION: Successful CT-guided bone marrow aspiration and core biopsy, as described. Pathology results are currently pending. Dictated by: Dictated on workstation # [id number]
[2023-03-03] MEDS: MILK OF MAGNESIA 400 MG/5 ML 30 ML UDC PO SCH ×4 (17:09→23:15)
[2023-03-03] MEDS ORDERED: PATIENT MAY USE OWN MEDS, ALL MC SCH (17:15)
[2023-03-03] MEDS ORDERED: ALPRAZolam 0.5 MG (XANAX) TAB PO PRN (20:00)
--- NOTE | 2023-03-03 20:34 | Progress Note-Pre Operative ---
Pre-Operative Progress Note Date H&P Reviewed: March 03, 2023 Time H&P Reviewed: 20:30 History & Physical: H&P Reviewed, Patient Examed, No changes noted Pre-Operative Diagnosis: Symptomatic anemia, positive heme stools TALA PAEZ APRN March 03, 2023 20:34
[2023-03-03] MEDS: meTOprolol TARTRATE 25 MG (LOPRESSOR) TABLET PO SCH (21:43)
[2023-03-03] MEDS: GABAPENTIN 100 MG (NEURONTIN) CAP PO SCH (21:43)
--- NOTE | 2023-03-03 22:37 | CONSULTATION REPORT ---
DATE OF SERVICE: 03/03/2023 ATTENDING PHYSICIAN: Dr. Claudia Billy. HISTORY OF PRESENT ILLNESS: The patient is a 77-year-old female who was seen in consultation with Dr. Torres. She reports that she presented to the emergency department yesterday for shortness of breath as well as fatigue. She reports that she would be walking and her legs would just give out spontaneously and that these symptoms have been present for 2 days. She denied any fever or chills. She did report that she would get significantly winded, especially with exertion. She denied any chest pain as well as no abdominal pain or change in bowel habits. She did undergo workup and was found to have a hemoglobin of 6.2. Upon further questioning, she denied any visible blood in her stool as well as no nausea or vomiting. She also denied any diarrhea or constipation. She does report a history of heartburn. She denies any family history of any colon cancer. She also reports that she has never had an EGD or colonoscopy at this point in her life. She does report she does have a daughter that does have Crohn's disease. She did have a Hemoccult stool after being admitted, which was positive. She also received 2 units of packed red cells after being admitted and her hemoglobin did come up to 8.6. MEDICAL HISTORY: Hypertension, hypercholesterolemia, arthritis, chronic back pain, anxiety, depression, gastroesophageal reflux disease. PAST SURGICAL HISTORY: Cervical neck fusion C3 through C7. Lumbar back fusion, appendectomy, section, tonsillectomy, laparoscopic cholecystectomy. ALLERGIES: DEPO-MEDROL. MEDICATIONS: Lexapro 10 mg at bedtime, Lasix 40 mg daily, gabapentin 100 mg 2 capsules t.i.d., metoprolol 25 mg half tablet b.i.d., omeprazole 40 mg daily, pravastatin 10 mg at bedtime, try drip. [ ]/hydrochlorothiazide 37.5/25 mg daily. SOCIAL HISTORY: Negative for tobacco smoke. Negative for alcohol. FAMILY HISTORY: Mother, cardiovascular disease. Father, cardiovascular disease. Sister, arthritis, cardiovascular disease, hypertension, renal disease. Brother, cardiovascular disease. VITAL SIGNS: Temperature 37.0 degrees Celsius, pulse 99, respirations 17, blood pressure is 135/81, pulse ox 95% on room air. REVIEW OF SYSTEMS: This is a well-nourished, obese female in no acute distress. She does report episodes of shortness of breath, no difficulty breathing. No chest pain, palpitations or diaphoresis. No nausea, vomiting or abdominal pain. No diarrhea or constipation. No red blood per rectum. No dark tarry stools. No hematemesis or any coffee-ground emesis. No fever or chills. No recent inadvertent weight loss. All other review of systems negative. PHYSICAL EXAM: CHEST: Clear. Good breath sounds bilaterally. HEART: Regular. No murmurs. EXTREMITIES: No lower extremity edema. Negative Homans sign. HEENT: No scleral icterus. No cervical lymphadenopathy. ABDOMEN: Soft, nontender, nondistended. SKIN: Warm, dry and pink. NEUROLOGIC: Awake, alert and oriented x3. ASSESSMENT: A 77-year-old female with symptomatic anemia, who is also found to be Hemoccult positive. PLAN: At this time, we will admit her for resuscitation with packed red cells as well as IV fluids. We will also proceed with bowel prep as well as clear liquids and schedule her for an EGD and a colonoscopy on this admission. Job ID: [id number] DocumentID: [id number] Dictated Date: 03/03/2023 20:23:54 Woodworker Date: 03/03/2023 22:34:00 Dictated By: TALA PAEZ APRN
[2023-03-04] VITALS (7 sets, daily range): BP systolic 120–143; BP diastolic 58–81
[2023-03-04] MEDS: MILK OF MAGNESIA 400 MG/5 ML 30 ML UDC PO SCH (01:11)
[2023-03-04 04:33] LABS: BASOPHILS % (AUTO) 1 % (0-10); EOSINOPHILS % (AUTO) 2 % (0-10)
[2023-03-04 04:35] LABS: HEMATOCRIT 24 % (35-52); HEMOGLOBIN 8.5 g/dL (11.5-16.0); LYMPHOCYTES # (AUTO) 1.3 10^3/uL (1.0-4.0); LYMPHOCYTES % (AUTO) 58 % (12-44); MEAN CORPUSCULAR HEMOGLOBIN 33 pg (25-34); MEAN CORPUSCULAR HGB CONC 35 g/dL (32-36); MEAN CORPUSCULAR VOLUME 95 fL (80-99); MEAN PLATELET VOLUME 11.6 fL (9.0-12.2); MONOCYTES # (AUTO) 0.3 10^3/uL (0.0-1.0); MONOCYTES % (AUTO) 15 % (0-12); NEUTROPHILS # (AUTO) 0.4 10^3/uL (1.8-7.8); NEUTROPHILS % (AUTO) 16 % (42-75); PLATELET COUNT 72 10^3/uL (130-400); WHITE BLOOD COUNT 2.1 10^3/uL (4.3-11.0)
[2023-03-04 04:57] LABS: ALBUMIN 3.2 GM/DL (3.2-4.5); BILIRUBIN,TOTAL 1.2 MG/DL (0.1-1.0); CALCIUM 9.2 MG/DL (8.5-10.1); CREATININE SERUM 1.33 MG/DL (0.60-1.30); POTASSIUM 3.5 MMOL/L (3.6-5.0); TOTAL PROTEIN 7.1 GM/DL (6.4-8.2)
--- NOTE | 2023-03-04 05:00 | Progress Note ---
Subjective Date Seen by a Provider: March 04, 2023 Time Seen by a Provider: 09:00 Subjective/Events-last exam Scopes set for today Updated patient with son on phone and daughter in law in room Hgb stable Awaiting some data from bone marrow Review of Systems General: Fatigue, Malaise Focused Exam Lactate Level 03/02/23 13:34: Lactic Acid Level 1.96 Objective Exam Last Set of Vital Signs Vital Signs Date Time Temp Pulse Resp B/P (MAP) Pulse Ox O2 Delivery O2 Flow Rate FiO2 03/04/23 03:00 36.9 76 20 143/81 (101) 95 Room Air Capillary Refill : Less Than 3 Seconds I&O Intake and Output 03/04/23 00:00 Intake Total 910 ml Output Total 100 ml Balance 810 ml Intake Oral 910 ml Output Urine Total 100 ml # Voids 5 # Bowel Movements 9 General: Alert, Oriented X3, Cooperative, No Acute Distress Lungs: Clear to Auscultation, Normal Air Movement Heart: Regular Rate, Normal S1, Normal S2, No Murmurs Psych/Mental Status: Mental Status NL, Mood NL Results Lab Laboratory Tests 03/03/23 05:53: White Blood Count 2.7L, Red Blood Count 2.57L, Hemoglobin 8.6L, Hematocrit 24L, Mean Corpuscular Volume 94, Mean Corpuscular Hemoglobin 34, Mean Corpuscular Hemoglobin Concent 36, Red Cell Distribution Width 20.2H, Platelet Count 63L, Mean Platelet Volume 12.9H, Immature Granulocyte % (Auto) 9, Neutrophils (%) (Auto) 29L, Lymphocytes (%) (Auto) 41, Monocytes (%) (Auto) 20H, Eosinophils (%) (Auto) 1, Basophils (%) (Auto) 0, Neutrophils # (Auto) 0.8L, Lymphocytes # (Auto) 1.1, Monocytes # (Auto) 0.6, Eosinophils # (Auto) 0.0, Basophils # (Auto) 0.0, Immature Granulocyte # (Auto) 0.2H, Neutrophils % (Manual) 26, Lymphocytes % (Manual) 56, Monocytes % (Manual) 18, Eosinophils % (Manual) 0, Basophils % (Manual) 0, Band Neutrophils 0, Atypical Lymphocytes 10, Platelet Estimate DECREASED, Percent Immature Platelet Fraction 16.5H, Polychromasia MODERATE, Hypochromasia SLIGHT, Anisocytosis MARKED, Erythrocyte Sedimentation Rate > 140H , Absolute Reticulocyte Count 23L, Percent Reticulocyte Count 0.91, D-Dimer 4.87H, Sodium Level 138, Potassium Level 3.6, Chloride Level 103, Carbon Dioxide Level 22, Anion Gap 13, Blood Urea Nitrogen 23H, Creatinine 1.28, Estimat Glomerular Filtration Rate 44, BUN/Creatinine Ratio 18, Glucose Level 123H, Calcium Level 9.0, Iron Level 148, Ferritin 1913.8H, Lactate Dehydrogenase 412H, Vitamin B12 Level >2000H, Folate 12.4 03/03/23 11:07: Stool Occult Blood Immunoassay POSITIVEH 03/03/23 11:55: Thyroid Stimulating Hormone (TSH) 1.02 03/03/23 12:31: Lab Scanned Report Transfusion Reaction Form 03/04/23 04:17: White Blood Count 2.1L, Red Blood Count 2.56L, Hemoglobin 8.5L, Hematocrit 24L, Mean Corpuscular Volume 95, Mean Corpuscular Hemoglobin 33, Mean Corpuscular Hemoglobin Concent 35, Red Cell Distribution Width 19.9H, Platelet Count 72L, Mean Platelet Volume 11.6, Immature Granulocyte % (Auto) 8, Neutrophils (%) (Auto) 16L, Lymphocytes (%) (Auto) 58H, Monocytes (%) (Auto) 15H, Eosinophils (%) (Auto) 2, Basophils (%) (Auto) 1, Neutrophils # (Auto) 0.4L, Lymphocytes # (Auto) 1.3, Monocytes # (Auto) 0.3, Eosinophils # (Auto) 0.0, Basophils # (Auto) 0.0, Immature Granulocyte # (Auto) 0.2H, Percent Immature Platelet Fraction 9.0H , Sodium Level 139, Potassium Level 3.5L, Chloride Level 99, Carbon Dioxide Level 27, Anion Gap 13, Blood Urea Nitrogen 21H, Creatinine 1.33H, Estimat G lomerular Filtration Rate 42, BUN/Creatinine Ratio 16, Glucose Level 113H, Calcium Level 9.2, Corrected Calcium 9.8, Total Bilirubin 1.2H, Aspartate Amino Transf (AST/SGOT) 19, Alanine Aminotransferase (ALT/SGPT) 9, Alkaline Phosphatase 63, Total Protein 7.1, Albumin 3.2 Microbiology 03/02/23 Blood Culture - Preliminary, Resulted No growth Assessment/Plan Assessment/Plan Assess & Plan/Chief Complaint Assessment: Severe and symptomatic anemia s/p 2 units of blood HTN HLP Chronic back pain managed by Dr Flores CKD Plan: Monitor hgb Dr Torres scope Home meds PPI Suspect myeloid issue so await bone marrow FIDEL LOOMIS DO March 04, 2023 04:59
[2023-03-04] MEDS: GABAPENTIN 100 MG (NEURONTIN) CAP PO SCH ×3 (08:41→20:39)
[2023-03-04] MEDS: KCL 10 MEQ TAB (MICRO K) PO SCH (08:42)
[2023-03-04] MEDS: FUROSEMIDE 40 MG (LASIX) TAB PO SCH (08:42)
[2023-03-04] MEDS: CELECOXIB 100 MG (CeleBREX) CAP PO SCH ×2 (08:42→21:07)
[2023-03-04] MEDS: PANTOPRAZOLE 40 MG (PROTONIX) TAB PO SCH (08:42)
[2023-03-04] MEDS: meTOprolol TARTRATE 25 MG (LOPRESSOR) TABLET PO SCH ×2 (08:42→20:40)
[2023-03-04] MEDS: NS IV 1000 ML 1,000 ML IV SCH ×2 (10:06→17:22)
[2023-03-04] MEDS ORDERED: LACTATED RINGERS 1,000 ML IV STA (14:51)
[2023-03-04] MEDS ORDERED: LACTATED RINGERS 1,000 ML IV ONE (14:58)
[2023-03-04] MEDS ORDERED: HURRICAINE EXT TUBE (BENZOCAINE) ONE (14:59)
[2023-03-04] MEDS ORDERED: LIDOCAINE JELLY 2% 6 ML SYRINGE MM PRN (15:00)
[2023-03-04] MEDS ORDERED: HURRICAINE EXT TUBE (BENZOCAINE) XX PRN (15:00)
[2023-03-04] MEDS ORDERED: PROPOFOL INJECTION 50 ML IV ONE (17:14)
[2023-03-04] MEDS ORDERED: LIDOCAINE JELLY 2% 6 ML SYRINGE ONE (17:34)
--- NOTE | 2023-03-04 18:23 | Anesthesia-General Post-Op ---
MAC Patient Condition Mental Status/LOC: Same as Preop Cardiovascular: Satisfactory Nausea/Vomiting: Absent Respiratory: Satisfactory Pain: Controlled Complications: Absent Post Op Complications Complications None Follow Up Care/Instructions Patient Instructions None needed. Anesthesiology Discharge Order Discharge Order Patient is doing well, no complaints, stable vital signs, no apparent adverse anesthesia problems. No complications reported per nursing. HADLEY DAVIS CRNA March 04, 2023 18:23
--- NOTE | 2023-03-04 18:48 | Progress Note-Post Operative ---
Post-Operative Progess Note Surgeon (s)/Hair Tinter (s) Surgeon CARLA JULES MD Hair Tinter: none Pre-Operative Diagnosis Symptomatic anemia, positive heme stools Post-Operative Diagnosis reflux esophagitis(grade B), small HH(2cm), mild gastritis. mild chronic stage 2 ext and int hemorrhoids, mild colitis of cecum and ascending colon. no active bleed upper or lower. Procedure & Operative Findings Date of Procedure 03/04/23 Procedure Performed/Findings EGD with bx. Colonoscopy with bx. Anesthesia Type mac Estimated Blood Loss Estimated blood loss (mL): minimal Specimens/Packing Specimens Removed ge jxn, antrum. cecum, asc colon CARLA JULES MD March 04, 2023 18:48
[2023-03-04] MEDS ORDERED: AtorvaSTATin TABLET 10 MG TABLET PO SCH (21:00)
--- NOTE | 2023-03-05 00:52 | OPERATIVE REPORT ---
DATE OF SERVICE: 03/04/2023 ATTENDING PRIMARY CARE PHYSICIAN: Millicent Funes MD ADMITTING PHYSICIAN: Claudia Billy DO PREOPERATIVE DIAGNOSIS: Anemia. POSTOPERATIVE DIAGNOSES: Reflux esophagitis, [place] grade B; small hiatal hernia 2 cm in size, mild to moderate gastritis, no active bleeding. Chronic stage II external and internal hemorrhoids, mild colitis of the cecum and ascending colon with no active bleeding. PROCEDURE: EGD with biopsy, colonoscopy with biopsy. SURGEON: Chloé Torres MD ANESTHESIA: Monitored anesthesia care. ESTIMATED BLOOD LOSS: Minimal. FINDINGS: Reflux esophagitis, [place] grade B; small hiatal hernia 2 cm in size, mild to moderate gastritis, no active bleeding. Chronic stage II external and internal hemorrhoids, mild colitis of the cecum and ascending colon with no active bleeding. DISPOSITION: The patient tolerated the procedure well. INDICATIONS: The patient is a 77-year-old female who was admitted for weakness and was found to be anemic. It appears that several other blood lines were decreased as well and she underwent a bone marrow biopsy. We were consulted for the anemia for upper and lower endoscopy to rule out a gastrointestinal source of potential bleeding. DESCRIPTION OF PROCEDURE: The patient was brought to the endoscopy suite and laid in the left lateral decubitus position. After adequate IV pain and sedative medications and monitored anesthesia care, the mouthpiece was applied. The endoscope was placed in the mouth, visualized the pharynx and hypopharyngeal region. Vocal cords, epiglottis and vallecula identified and appeared to be normal. The endoscope was then gently intubated in the esophageal opening and esophagus insufflated. The endoscope was then advanced through the first, second and third portions of esophagus; at the level of the GE junction, reflux esophagitis, [place] grade B identified. No ulcers or strictures identified in this region. A biopsy was taken with forceps with visualization of good hemostasis. The endoscope was then advanced into the stomach and endoscope retroflexed, visualizing a small hiatal hernia approximately 2 cm in size. There was some mild to moderate gastritis, nothing severe and no ulcers or bleeding sources. A biopsy was taken of the antrum to rule out H. pylori with visualization of good hemostasis. The endoscope was then advanced through the pylorus and first and second portion of the duodenum, which appeared normal with no ulcerations. The endoscope was then slowly withdrawn while taking a second look and suctioning of residual air with no additional findings. A digital rectal examination was performed which revealed mild chronic stage II external and internal hemorrhoids, not actively edematous nor inflamed and no bleeding. Normal sphincter tone was felt and there were no palpable masses. The endoscope was then intubated into the anus, rectum gently insufflated. The endoscope was then advanced through the valves of [place] of the rectum with no polyps or any neoplasms identified. Through the sigmoid colon, no diverticulosis identified. We then proceeded to the descending, transverse colon to the ascending and cecum. At the level of the ascending colon to the cecum, there was a mild colitis identified. There were no formal ulcerations as well as no active bleeding. Biopsies were taken of the cecum as well as the ascending colon using forceps with visualization of good hemostasis. The endoscope was then slowly withdrawn while taking second look and suctioning of residual air with no additional findings. The patient tolerated the procedure well. We will recommend the necessary lifestyle and dietary accommodation including small and more frequent meals, avoidance of eating at night as well as head elevation while lying supine. She also needs to avoid caffeinated beverages, spicy, greasy and acidic foods. We will also recommend a high-fiber diet with at least 25 grams of fiber daily as well as significant amounts of water to promote soft consistency stools on a daily basis. If she does have issues more consistent with worsening colitis, which may include crampy abdominal pain or visible stools in her bowel movements, she may need to proceed with medical treatment modalities. For that, we would refer her to Gastroenterology. Job ID: [id number] DocumentID: [id number] Dictated Date: 03/04/2023 18:27:55 Software Quality Test Engineer Date: 03/05/2023 00:51:00 Dictated By: MD BENOIT HICKS
[2023-03-05] MEDS: NS IV 1000 ML 1,000 ML IV SCH ×2 (02:21→11:20)
[2023-03-05 05:33] LABS: BASOPHILS % (AUTO) 1 % (0-10)
[2023-03-05 05:35] LABS: EOSINOPHILS % (AUTO) 2 % (0-10); HEMATOCRIT 27 % (35-52); HEMOGLOBIN 9.2 g/dL (11.5-16.0); LYMPHOCYTES # (AUTO) 1.2 10^3/uL (1.0-4.0); LYMPHOCYTES % (AUTO) 63 % (12-44); MEAN CORPUSCULAR HEMOGLOBIN 34 pg (25-34); MEAN CORPUSCULAR HGB CONC 35 g/dL (32-36); MEAN CORPUSCULAR VOLUME 97 fL (80-99); MEAN PLATELET VOLUME 11.9 fL (9.0-12.2); MONOCYTES # (AUTO) 0.2 10^3/uL (0.0-1.0); MONOCYTES % (AUTO) 11 % (0-12); NEUTROPHILS # (AUTO) 0.3 10^3/uL (1.8-7.8); NEUTROPHILS % (AUTO) 17 % (42-75); PLATELET COUNT 70 10^3/uL (130-400)
[2023-03-05 05:51] LABS: ALBUMIN 3.3 GM/DL (3.2-4.5)
[2023-03-05 05:52] LABS: POTASSIUM 3.6 MMOL/L (3.6-5.0)
[2023-03-05 05:53] LABS: CALCIUM 9.1 MG/DL (8.5-10.1)
[2023-03-05 05:54] LABS: TOTAL PROTEIN 7.3 GM/DL (6.4-8.2)
[2023-03-05 05:56] LABS: BILIRUBIN,TOTAL 0.8 MG/DL (0.1-1.0)
[2023-03-05 05:58] LABS: CREATININE SERUM 1.32 MG/DL (0.60-1.30)
[2023-03-05 07:55] VITALS: BP 145/78
[2023-03-05] MEDS: CELECOXIB 100 MG (CeleBREX) CAP PO SCH (08:02)
[2023-03-05] MEDS: PANTOPRAZOLE 40 MG (PROTONIX) TAB PO SCH (08:02)
[2023-03-05] MEDS: KCL 10 MEQ TAB (MICRO K) PO SCH (08:02)
[2023-03-05] MEDS: FUROSEMIDE 40 MG (LASIX) TAB PO SCH (08:02)
[2023-03-05] MEDS: meTOprolol TARTRATE 25 MG (LOPRESSOR) TABLET PO SCH (08:02)
[2023-03-05] MEDS: GABAPENTIN 100 MG (NEURONTIN) CAP PO SCH ×2 (08:02→13:19)
[2023-03-05] MEDS: ACETAMINOPHEN 325 MG TABLET PO PRN (11:25)
--- NOTE | 2023-03-05 13:48 | Oncology Consultation ---
Visit Information Visit Information Date of Admission March 02, 2023 at 14:11 Attending Physician Millicent Funes MD Admitting Physician Admitting Physician: Sravani Palacios MD Attending Physician: Claudia Billy DO Chief Complaint General weakness, pancytopenia, Hb 6.2 Interval History Ms. Owen is a 77 year old white female presented to ER with c/o general weakness and headache, CBC showed pancytopenia, Hb 6.2. She was admitted for RBC transfusion and GI work as well as bone marrow. She received 2 units of RBC and felt a lot better. Peripheral blood smear showed suspicious cells of myeoid blasts which triggered bone marrow exam. Pathology revealed 58% blasts.We are called for management. I consulted the patient on: 03/05/23 13:41 Time Seen by Provider: 08:48 Review of Systems Constitutional: see HPI Health Status Allergies Coded Allergies: methylprednisolone (Unverified Allergy, Unknown, 03/04/23) Home Medications Acetaminophen (Tylenol Extra Strength) 500 Mg Tablet, 500 MG PO Q8H PRN for PAIN-MILD (1-4), (Reported) Alprazolam (Alprazolam) 0.5 Mg Tablet, 0.25 MG PO BID PRN for ANXIETY, (Reported) Celecoxib (Celecoxib) 200 Mg Capsule, 200 MG PO BID, (Reported) Escitalopram Oxalate (Escitalopram Oxalate) 10 Mg Tablet, 10 MG PO HS, (Reported) Furosemide (Furosemide) 40 Mg Tablet, 40 MG PO DAILY, (Reported) Gabapentin (Gabapentin) 100 Mg Capsule, 200 MG PO TID, (Reported) TAKES 2 (100MG) CAPS Metoprolol Tartrate (Metoprolol Tartrate) 25 Mg Tablet, 12.5 MG PO BID, (Report ed) TAKES OF A 25MG Pantoprazole Sodium (Pantoprazole Sodium) 40 Mg Tablet.dr, 40 MG PO DAILY, (Reported) Potassium Chloride (Potassium Chloride) 10 Meq Tab.er.prt, 10 MEQ PO DAILY, (Reported) Pravastatin Sodium (Pravastatin Sodium) 10 Mg Tablet, 10 MG PO HS, (Reported) [id number]-[id number]-Mrqncq Hx Patient Social History Marrital Status: single Employed/Student: retired Smoking Status: Never a Smoker 2nd Hand Smoke Exposure: No Recent Hopitalizations: Yes Alcohol Use?: No Have you traveled recently?: No Family Medical History Significant Family History: Heart Disease, Hypertension, Renal Disease Family History: Family history: Arthritis 09 SISTER, Onset:40's - 50 09 SISTER, Onset:40's - 50 Family history: Cardiovascular disease 03 FATHER, Onset:50's - 60 03 MOTHER, Onset:60 years & older 09 BROTHER, Onset:60 years & older 09 SISTER, Onset:60 years & older Heart disease 09 SISTER, Onset:60 years & older Physical Exam Vital Signs Vital Signs - First Documented 03/02/23 03/04/23 13:16 18:20 Temp 37.2 Pulse 113 Resp 16 B/P (MAP) 178/80 (112) Pulse Ox 94 O2 Delivery Room Air O2 Flow Rate 6.00 Capillary Refill : Less Than 3 Seconds Height, Weight, BMI Height: '" Weight: 168lbs. oz. 76.600573bp; 36.51 BMI Method: General Appearance: No Apparent Distress HEENT: PERRL/EOMI Neck: Non Tender, Supple Respiratory: No Accessory Muscle Use, No Respiratory Distress Cardiovascular: Regular Rate, Rhythm, No Edema Gastrointestinal: Non Tender, Soft Extremity: Non Tender, No Calf Tenderness Neurologic/Psychiatric: Alert, Oriented x3 Data Review Labs Laboratory Tests 03/05/23 05:24 Laboratory Tests 03/02/23 15:15: Urine Specific [place] 1.015L, Urine Protein 1+H, Urine Hyaline Casts 10-25H 03/03/23 05:53: White Blood Count 2.7L, Red Blood Count 2.57L, Hemoglobin 8.6L, Hematocrit 24L, Red Cell Distribution Width 20.2H, Platelet Count 63L, Mean Platelet Volume 12.9H, Neutrophils (%) (Auto) 29L, Lymphocytes (%) (Auto) 47H, Monocytes (%) (Auto) 20H, Neutrophils # (Auto) 0.8L, Immature Granulocyte # (Auto) 0.2H, Percent Immature Platelet Fraction 16.5H, Erythrocyte Sedimentation Rate > 140H, Absolute Reticulocyte Count 23L, D-Dimer 4.87H, Blood Urea Nitrogen 23H, Glucose Level 123H, Ferritin 1913.8H, Lactate Dehydrogenase 412H, Vitamin B12 Level >2000H 03/03/23 11:07: Stool Occult Blood Immunoassay POSITIVEH 03/03/23 11:55: 03/03/23 12:31: 03/04/23 04:17: White Blood Count 2.1L, Red Blood Count 2.56L, Hemoglobin 8.5L, Hematocrit 24L, Red Cell Distribution Width 19.9H, Platelet Count 72L, Neutrophils (%) (Auto) 16L, Lymphocytes (%) (Auto) 58H, Monocytes (%) (Auto) 15H, Neutrophils # (Auto) 0.4L, Immature Granulocyte # (Auto) 0.2H, Percent Immature Platelet Fraction 9.0H, Potassium Level 3.5L, Blood Urea Nitrogen 21H, Creatinine 1.33H, Glucose Level 113H, Total Bilirubin 1.2H 03/05/23 05:24: White Blood Count 2.0L, Red Blood Count 2.73L, Hemoglobin 9.2L, Hematocrit 27L, Red Cell Distribution Width 19.7H, Platelet Count 70L, Neutrophils (%) (Auto) 17L, Lymphocytes (%) (Auto) 63H, Neutrophils # (Auto) 0.3L, Percent Immature Platelet Fraction 8.6H, Blood Urea Nitrogen 27H, Creatinine 1.32H Impression & Plan Impression & Plan Bone marrow exam: 58% myeloid blasts. IMP: 1. AML, [place], pancytopenia, 2. Symptomatic anemia Hb 6.2, s/p 2 units RBC transfusion. Patient felt a lot better now. 3. h/o HTN, HLP. 4. 77 year old delightful woman. Plan: 1. I have discussed with patient and her daughter about the diagnosis of AML and recommended to transfer to [facility] for induction treatment. Patient agreed for transfer and she wants to go by her daughter's private transportation. 2. I have called [facility] and arranged the transfer. [facility] will notify the floor nurse for the time and bed situation of the transfer. 3. All the questions and concerns were answered to patient and her family satisfaction today. RAQUEL GALARZA MD March 05, 2023 13:48
--- NOTE | 2023-03-05 14:53 | Discharge Summary ---
Diagnosis/Chief Complaint Date of Admission March 02, 2023 at 14:11 Date of Discharge Discharge Date: March 05, 2023 Discharge Diagnosis Assessment: Symptomatic severe anemia Hemoccult positive stools requiring scopes Acute myeloid leukemia requiring transfer to Hypertension Hyperlipidemia Increased BMI Discharge Summary Discharge Physical Examination Allergies: Coded Allergies: methylprednisolone (Unverified Allergy, Unknown, 03/04/23) Vitals & I&Os Vital Signs Date Time Temp Pulse Resp B/P (MAP) Pulse Ox O2 Delivery O2 Flow Rate FiO2 03/05/23 15:14 36.7 65 18 145/78 93 Room Air 6.00 General Appearance: Alert, Oriented X3, Cooperative Respiratory: Clear to Auscultation Cardiovascular: Regular Rate Psych/Mental Status: Mental Status NL Hospital Course Was the Problem List Reviewed?: Yes Hospital course: Patient had an uneventful but lengthy hospital course after she was admitted for severe symptomatic anemia with hemoglobin of 6.2 requiring 2 units of blood which resulted in good hemoglobin level of 8.4. She did undergo EGD and colonoscopy which showed no source of occult positive stools. She did undergo bone marrow due to suspicion for myelodysplastic process and that did show evidence of acute myeloid leukemia and Dr. Bingham was consulted and arranged for transfer to . Labs (last 24 hrs) Laboratory Tests 03/02/23 13:20: White Blood Count 3.2L, Red Blood Count 1.74L, Hemoglobin 6.2*L, Hematocrit 18*L , Mean Corpuscular Volume 105H, Mean Corpuscular Hemoglobin 36H, Mean Corpuscular Hemoglobin Concent 34, Red Cell Distribution Width 16.3H, Platelet Count 116L, Mean Platelet Volume 12.0, Immature Granulocyte % (Auto) 9, Neutrophils (%) (Auto) 32L, Lymphocytes (%) (Auto) 43, Monocytes (%) (Auto) 15H, Eosinophils (%) (Auto) 1, Basophils (%) (Auto) 1, Neutrophils # (Auto) 1.0L, Lymphocytes # (Auto) 1.4, Monocytes # (Auto) 0.5, Eosinophils # (Auto) 0.0, Baso phils # (Auto) 0.0, Immature Granulocyte # (Auto) 0.3H, Percent Immature Platelet Fraction 6.7, Sodium Level 139, Potassium Level 3.0L, Chloride Level 99, Carbon Dioxide Level 23, Anion Gap 17H, Blood Urea Nitrogen 24H, Creatinine 1.43H, Estimat Glomerular Filtration Rate 38, BUN/Creatinine Ratio 17, Glucose Level 158H, Calcium Level 9.7, Corrected Calcium 9.9, Total Bilirubin 1.1H, Aspartate Amino Transf (AST/SGOT) 14, Alanine Aminotransferase (ALT/SGPT) 9, Alkaline Phosphatase 72, Troponin I < 0.028, Total Protein 7.8, Albumin 3.7 03/02/23 13:30: SARS-CoV-2 RNA (RT-PCR) Not Detected 03/02/23 13:34: Lactic Acid Level 1.96 03/02/23 15:15: Urine Color YELLOW, Urine Clarity CLEAR, Urine pH 6.0, Urine Specific [place] 1.015L, Urine Protein 1+H, Urine Glucose (UA) NEGATIVE, Urine Ketones NEGATIVE, Urine Nitrite NEGATIVE, Urine Bilirubin NEGATIVE, Urine Urobilinogen 1.0, Urine Leukocyte Esterase NEGATIVE, Urine RBC (Auto) NEGATIVE, Urine RBC NONE, Urine WBC 0-2, Urine Squamous Epithelial Cells 5-10, Urine Crystals NONE, Urine Bacteria TRACE, Urine Casts PRESENT, Urine Hyaline Casts 10-25H, Urine Mucus NEGATIVE, Urine Culture Indicated NO 03/03/23 05:53: White Blood Count 2.7L, Red Blood Count 2.57L, Hemoglobin 8.6L, Hematocrit 24L, Mean Corpuscular Volume 94, Mean Corpuscular Hemoglobin 34, Mean Corpuscular Hemoglobin Concent 36, Red Cell Distribution Width 20.2H, Platelet Count 63L, Mean Platelet Volume 12.9H, Immature Granulocyte % (Auto) 9, Neutrophils (%) (Auto) 29L, Lymphocytes (%) (Auto) 41, Monocytes (%) (Auto) 20H, Eosinophils (%) (Auto) 1, Basophils (%) (Auto) 0, Neutrophils # (Auto) 0.8L, Lymphocytes # (Auto) 1.1, Monocytes # (Auto) 0.6, Eosinophils # (Auto) 0.0, Basophils # (Auto) 0.0, Immature Granulocyte # (Auto) 0.2H, Neutrophils % (Manual) 26, Lymphocytes % (Manual) 56, Monocytes % (Manual) 18, Eosinophils % (Manual) 0, Basophils % (Manual) 0, Band Neutrophils 0, Atypical Lymphocytes 10, Platelet Estimate DECREASED, Percent Immature Platelet Fraction 16.5H, Polychromasia MODERATE, Hypochromasia SLIGHT, Anisocytosis MARKED, Erythrocyte Sedimentation Rate > 140H , Absolute Reticulocyte Count 23L, Percent Reticulocyte Count 0.91, D-Dimer 4.87H, Sodium Level 138, Potassium Level 3.6, Chloride Level 103, Carbon Dioxide Level 22, Anion Gap 13, Blood Urea Nitrogen 23H, Creatinine 1.28, Estimat Glomerular Filtration Rate 44, BUN/Creatinine Ratio 18, Glucose Level 123H, Calcium Level 9.0, Iron Level 148, Ferritin 1913.8H, Lactate Dehydrogenase 412H, Vitamin B12 Level >2000H, Folate 12.4 03/03/23 11:07: Stool Occult Blood Immunoassay POSITIVEH 03/03/23 11:55: Thyroid Stimulating Hormone (TSH) 1.02 03/03/23 12:31: Lab Scanned Report Transfusion Reaction Form 03/04/23 04:17: White Blood Count 2.1L, Red Blood Count 2.56L, Hemoglobin 8.5L, Hematocrit 24L, Mean Corpuscular Volume 95, Mean Corpuscular Hemoglobin 33, Mean Corpuscular Hemoglobin Concent 35, Red Cell Distribution Width 19.9H, Platelet Count 72L, Mean Platelet Volume 11.6, Immature Granulocyte % (Auto) 8, Neutrophils (%) (Auto) 16L, Lymphocytes (%) (Auto) 58H, Monocytes (%) (Auto) 15H, Eosinophils (%) (Auto) 2, Basophils (%) (Auto) 1, Neutrophils # (Auto) 0.4L, Lymphocytes # (Auto) 1.3, Monocytes # (Auto) 0.3, Eosinophils # (Auto) 0.0, Basophils # (Auto) 0.0, Immature Granulocyte # (Auto) 0.2H, Percent Immature Platelet Fraction 9.0H , Sodium Level 139, Potassium Level 3.5L, Chloride Level 99, Carbon Dioxide Level 27, Anion Gap 13, Blood Urea Nitrogen 21H, Creatinine 1.33H, Estimat Glomerular Filtration Rate 42, BUN/Creatinine Ratio 16, Glucose Level 113H, Calcium Level 9.2, Corrected Calcium 9.8, Total Bilirubin 1.2H, Aspartate Amino Transf (AST/SGOT) 19, Alanine Aminotransferase (ALT/SGPT) 9, Alkaline Phosphatase 63, Total Protein 7.1, Albumin 3.2 03/05/23 05:24: White Blood Count 2.0L, Red Blood Count 2.73L, Hemoglobin 9.2L, Hematocrit 27L, Mean Corpuscular Volume 97, Mean Corpuscular Hemoglobin 34, Mean Corpuscular He moglobin Concent 35, Red Cell Distribution Width 19.7H, Platelet Count 70L, Mean Platelet Volume 11.9, Immature Granulocyte % (Auto) 7, Neutrophils (%) (Auto) 17L, Lymphocytes (%) (Auto) 63H, Monocytes (%) (Auto) 11, Eosinophils (%) (Auto) 2, Basophils (%) (Auto) 1, Neutrophils # (Auto) 0.3L, Lymphocytes # (Auto) 1.2, Monocytes # (Auto) 0.2, Eosinophils # (Auto) 0.0, Basophils # (Auto) 0.0, Immature Granulocyte # (Auto) 0.1, Percent Immature Platelet Fraction 8.6H, Sodium Level 138, Potassium Level 3.6, Chloride Level 100, Carbon Dioxide Level 24, Anion Gap 14, Blood Urea Nitrogen 27H, Creatinine 1.32H, Estimat Glomerular Filtration Rate 42, BUN/Creatinine Ratio 20, Glucose Level 95, Calcium Level 9.1, Corrected Calcium 9.7, Total Bilirubin 0.8, Aspartate Amino Transf (AST/SGOT) 19, Alanine Aminotransferase (ALT/SGPT) 11, Alkaline Phosphatase 65, Total Protein 7.3, Albumin 3.3 Microbiology 03/03/23 MRSA Screen - Final, Complete MRSA not isolated 03/02/23 Blood Culture - Preliminary, Resulted No growth Pending Labs Microbiology Date/Time Source Procedure Growth Status 03/03/23 23:11 Nasal MRSA Screen - Final MRSA not isolated Complete 03/02/23 14:21 Peripheral Right Wrist Blood Culture - Preliminary No growth Resulted 03/02/23 13:34 Peripheral Lt Ac Blood Culture - Preliminary No growth Resulted Laboratory Tests 03/02/23 13:20: White Blood Count 3.2, Red Blood Count 1.74, Hemoglobin 6.2, Hematocrit 18, Mean Corpuscular Volume 105, Mean Corpuscular Hemoglobin 36, Mean Corpuscular Hemog lobin Concent 34, Red Cell Distribution Width 16.3, Platelet Count 116, Mean Platelet Volume 12.0, Immature Granulocyte % (Auto) 9, Neutrophils (%) (Auto) 32, Lymphocytes (%) (Auto) 43, Monocytes (%) (Auto) 15, Eosinophils (%) (Auto) 1, Basophils (%) (Auto) 1, Neutrophils # (Auto) 1.0, Lymphocytes # (Auto) 1.4, Monocytes # (Auto) 0.5, Eosinophils # (Auto) 0.0, Basophils # (Auto) 0.0, Immature Granulocyte # (Auto) 0.3, Percent Immature Platelet Fraction 6.7, Sodium Level 139, Potassium Level 3.0, Chloride Level 99, Carbon Dioxide Level 23, Anion Gap 17, Blood Urea Nitrogen 24, Creatinine 1.43, Estimat Glomerular Filtration Rate 38, BUN/Creatinine Ratio 17, Glucose Level 158, Calcium Level 9.7, Corrected Calcium 9.9, Total Bilirubin 1.1, Aspartate Amino Transf (AST/SGOT) 14, Alanine Aminotransferase (ALT/SGPT) 9, Alkaline Phosphatase 72, Troponin I < 0.028, Total Protein 7.8, Albumin 3.7 03/02/23 13:30: SARS-CoV-2 RNA (RT-PCR) Not Detected 03/02/23 13:34: Lactic Acid Level 1.96 03/02/23 15:15: Urine Color YELLOW, Urine Clarity CLEAR, Urine pH 6.0, Urine Specific [place] 1.015, Urine Protein 1+, Urine Glucose (UA) NEGATIVE, Urine Ketones NEGATIVE, Urine Nitrite NEGATIVE, Urine Bilirubin NEGATIVE, Urine Urobilinogen 1.0, Urine Leukocyte Esterase NEGATIVE, Urine RBC (Auto) NEGATIVE, Urine RBC NONE, Urine WBC 0-2, Urine Squamous Epithelial Cells 5-10, Urine Crystals NONE, Urine Bacteria TRACE, Urine Casts PRESENT, Urine Hyaline Casts 10-25, Urine Mucus NEGA TIVE, Urine Culture Indicated NO 03/03/23 05:53: White Blood Count 2.7, Red Blood Count 2.57, Hemoglobin 8.6, Hematocrit 24, Mean Corpuscular Volume 94, Mean Corpuscular Hemoglobin 34, Mean Corpuscular Hemoglobin Concent 36, Red Cell Distribution Width 20.2, Platelet Count 63, Mean Platelet Volume 12.9, Immature Granulocyte % (Auto) 9, Neutrophils (%) (Auto) 29 , Lymphocytes (%) (Auto) 41, Monocytes (%) (Auto) 20, Eosinophils (%) (Auto) 1, Basophils (%) (Auto) 0, Neutrophils # (Auto) 0.8, Lymphocytes # (Auto) 1.1, Monocytes # (Auto) 0.6, Eosinophils # (Auto) 0.0, Basophils # (Auto) 0.0, Immature Granulocyte # (Auto) 0.2, Neutrophils % (Manual) 26, Lymphocytes % (Manual) 56, Monocytes % (Manual) 18, Eosinophils % (Manual) 0, Basophils % (M anual) 0, Band Neutrophils 0, Atypical Lymphocytes 10, Platelet Estimate DECREASED, Percent Immature Platelet Fraction 16.5, Polychromasia MODERATE, Hypochromasia SLIGHT, Anisocytosis MARKED, Erythrocyte Sedimentation Rate > 140, Absolute Reticulocyte Count 23, Percent Reticulocyte Count 0.91, D-Dimer 4.87, Sodium Level 138, Potassium Level 3.6, Chloride Level 103, Carbon Dioxide Level 22, Anion Gap 13, Blood Urea Nitrogen 23, Creatinine 1.28, Estimat Glomerular Filtration Rate 44, BUN/Creatinine Ratio 18, Glucose Level 123, Calcium Level 9.0, Iron Level 148, Ferritin 1913.8, Lactate Dehydrogenase 412, Vitamin B12 Level >2000, Folate 12.4 03/03/23 11:07: Stool Occult Blood Immunoassay POSITIVE 03/03/23 11:55: Thyroid Stimulating Hormone (TSH) 1.02 03/03/23 12:31: Lab Scanned Report Transfusion Reaction Form 03/04/23 04:17: White Blood Count 2.1, Red Blood Count 2.56, Hemoglobin 8.5, Hematocrit 24, Mean Corpuscular Volume 95, Mean Corpuscular Hemoglobin 33, Mean Corpuscular Hemoglobin Concent 35, Red Cell Distribution Width 19.9, Platelet Count 72, Mean Platelet Volume 11.6, Immature Granulocyte % (Auto) 8, Neutrophils (%) (Auto) 16, Lymphocytes (%) (Auto) 58, Monocytes (%) (Auto) 15, Eosinophils (%) (Auto) 2, Basophils (%) (Auto) 1, Neutrophils # (Auto) 0.4, Lymphocytes # (Auto) 1.3, Monocytes # (Auto) 0.3, Eosinophils # (Auto) 0.0, Basophils # (Auto) 0.0, Immature Granulocyte # (Auto) 0.2, Percent Immature Platelet Fraction 9.0, S odium Level 139, Potassium Level 3.5, Chloride Level 99, Carbon Dioxide Level 27, Anion Gap 13, Blood Urea Nitrogen 21, Creatinine 1.33, Estimat Glomerular Filtration Rate 42, BUN/Creatinine Ratio 16, Glucose Level 113, Calcium Level 9.2, Corrected Calcium 9.8, Total Bilirubin 1.2, Aspartate Amino Transf (AST/SGOT) 19, Alanine Aminotransferase (ALT/SGPT) 9, Alkaline Phosphatase 63, Total Protein 7.1, Albumin 3.2 03/05/23 05:24: White Blood Count 2.0, Red Blood Count 2.73, Hemoglobin 9.2, Hematocrit 27, Mean Corpuscular Volume 97, Mean Corpuscular Hemoglobin 34, Mean Corpuscular Hemoglobin Concent 35, Red Cell Distribution Width 19.7, Platelet Count 70, Mean Platelet Volume 11.9, Immature Granulocyte % (Auto) 7, Neutrophils (%) (Auto) 17, Lymphocytes (%) (Auto) 63, Monocytes (%) (Auto) 11, Eosinophils (%) (Auto) 2, Basophils (%) (Auto) 1, Neutrophils # (Auto) 0.3, Lymphocytes # (Auto) 1.2, Monocytes # (Auto) 0.2, Eosinophils # (Auto) 0.0, Basophils # (Auto) 0.0, Immature Granulocyte # (Auto) 0.1, Percent Immature Platelet Fraction 8.6, Sodium Level 138, Potassium Level 3.6, Chloride Level 100, Carbon Dioxide Level 24, Anion Gap 14, Blood Urea Nitrogen 27, Creatinine 1.32, Estimat Glomerular Filtration Rate 42, BUN/Creatinine Ratio 20, Glucose Level 95, Calcium Level 9.1, Corrected Calcium 9.7, Total Bilirubin 0.8, Aspartate Amino Transf (AST/SGOT) 19, Alanine Aminotransferase (ALT/SGPT) 11, Alkaline Phosphatase 65, Total Protein 7.3, Albumin 3.3 Discharge Home Medications: Active Scripts Active Reported Tylenol Extra Strength (Acetaminophen) 500 Mg Tablet 500 Mg PO Q8H PRN Alprazolam 0.5 Mg Tablet 0.25 Mg PO BID PRN Celecoxib 200 Mg Capsule 200 Mg PO BID Potassium Chloride 10 Meq Tab.er.prt 10 Meq PO DAILY Furosemide 40 Mg Tablet 40 Mg PO DAILY Pantoprazole Sodium 40 Mg Tablet.dr 40 Mg PO DAILY Pravastatin Sodium 10 Mg Tablet 10 Mg PO HS Escitalopram Oxalate 10 Mg Tablet 10 Mg PO HS Gabapentin 100 Mg Capsule 200 Mg PO TID TAKES 2 (100MG) CAPS Metoprolol Tartrate 25 Mg Tablet 12.5 Mg PO BID TAKES OF A 25MG Instructions to patient/family Please see electronic discharge instructions given to patient. FIDEL LOOMIS DO March 05, 2023 14:53
[2023-03-05 15:14] VITALS: BP 145/78
== END 2023-03-05 15:33 | disposition short-term general hospital (02) | DRG 835 ==
LOC: EDUNIT# 13:12 → ER 13:14 → 4TH 14:11
PROVIDERS: ADMIT Family Medicine; ATTEND Internal Medicine
PROC: 0DBH8ZX Excision of Cecum, Via Natural or Artificial Opening Endoscopic, Diagnostic (ICD-10-PCS; 2023-03-04)
PROC: 0DBK8ZX Excision of Ascending Colon, Via Natural or Artificial Opening Endoscopic, Diagnostic (ICD-10-PCS; 2023-03-04)
PROC: 0DB48ZX Excision of Esophagogastric Junction, Via Natural or Artificial Opening Endoscopic, Diagnostic (ICD-10-PCS; principal; 2023-03-04 17:30)
PROC: 0DB78ZX Excision of Stomach, Pylorus, Via Natural or Artificial Opening Endoscopic, Diagnostic (ICD-10-PCS; 2023-03-04 17:30)
DX: C92.00 Acute myeloblastic leukemia, not having achieved remission (principal); D61.818 Other pancytopenia; N17.9 Acute kidney failure, unspecified; E87.6 Hypokalemia; E78.00 Pure hypercholesterolemia, unspecified; I10 Essential (primary) hypertension; F41.9 Anxiety disorder, unspecified; F32.A Depression, unspecified; M54.9 Dorsalgia, unspecified; K21.00 Gastro-esophageal reflux disease with esophagitis, without bleeding; K29.70 Gastritis, unspecified, without bleeding; K64.1 Second degree hemorrhoids; K52.9 Noninfective gastroenteritis and colitis, unspecified; Z79.899 Other long term (current) drug therapy; Z88.8 Allergy status to other drugs, medicaments and biological substances; Z20.822 Contact with and (suspected) exposure to COVID-19
CPT/HCPCS: 36415; 38222; 71045; 77012; 80048; 80053; 81000; 82274; 82607; 82728; 82746; 83540; 83605; 83615; 84443; 84484; 85007; 85025; 85027; 85045; 85055; 85379; 85652; 86850; 86900; 86901; 86920; 87040; 87081; 87636; 93005